=== PATIENT | female | born 1975 | race Caucasian/White ===

== ENCOUNTER → 2019-11-15 12:05 | Outpatient (BNVA) | payer MEDICARE, MEDICAID, SELFPAY | PROVIDERS: Visit Provider Psychiatry & Neurology Psychiatry | DX: F43.12 Post-traumatic stress disorder, chronic (principal); F33.41 Major depressive disorder, recurrent, in partial remission; F41.0 Panic disorder [episodic paroxysmal anxiety] | CPT/HCPCS: 99214 ==

== ENCOUNTER 2019-12-19 09:55 | Outpatient (CLI) | payer MEDICARE, MEDICAID, SELFPAY ==
--- NOTE | 2019-12-19 10:05 | MM_ITS ---
WS: [id number] DIAGNOSTIC LEFT DIGITAL MAMMOGRAM WITH CAD HISTORY: ABNORMAL MAMMO OF LT BREAST COMPARISON: 06/24/2019, 06/04/2019 at 05/16/2019 Technique: CC, MLO and ML views. Magnification views LEFT CC and MLO. Breast composition: The breasts are heterogeneously dense, which may obscure small masses. Biopsy cl ip 12:00 axis of the LEFT breast adjacent to multiple calcifications. After stereotactic biopsy major ity of the calcifications have been removed. There are still some calcifications on each side of the clip. Pathology described fibrocystic disease. No increase in size or number of the calcifications. MM/[id number] IMPRESSION: BI-RADS: 3-Probably Benign FOLLOW UP: 6 Month Follow-up Patient should return for annual screening mammogram in May 2020. These calc ifications and stability can be reevaluated at time.
== END 2019-12-19 09:56 | disposition home or self-care (01) ==
LOC: RADSHAW 09:57
PROVIDERS: PCP Nurse Practitioner Family; Visit Provider Nurse Practitioner Family
DX: R92.1 Mammographic calcification found on diagnostic imaging of breast (principal); R92.8 Other abnormal and inconclusive findings on diagnostic imaging of breast
CPT/HCPCS: 77065

== ENCOUNTER 2019-12-26 14:25 | Outpatient (CLI) | payer MEDICARE, MEDICAID, SELFPAY ==
[2019-12-26 15:10] LABS: Basophils # 0.1 10^3/uL (0.0-0.1); Basophils % 0.4 %; Eosinophils # 0.3 10^3/uL (0.0-0.8); Eosinophils % 2.6 %; Hematocrit 39.8 % (37.0-47.0); Hemoglobin 13.4 g/dL (11.5-15.3); Lymphocytes # 3.8 10^3/uL (0.8-4.8); Lymphocytes % 32.7 %; Mean Corpuscular HGB Conc 33.7 g/dL (30.0-36.0); Mean Corpuscular Hemoglobin 31.6 pg (28.0-34.0); Mean Corpuscular Volume 93.9 fL (81-99); Mean Platelet Volume 9.2 fL (7.4-10.4); Monocytes # 0.9 10^3/uL (0.2-0.9); Monocytes % 7.6 %; Neutrophils # 6.6 10^3/uL (1.8-7.7); Neutrophils % 56.4 %; Nucleated Red Blood Cells % 0 %; Platelet Count 229 10^3/cmm (130-400); Red Blood Count 4.24 10^6/uL (4.1-5.3); Red Cell Distribution Width 12.3 % (12.1-15.1); White Blood Count 11.6 10^3/uL (4.0-10.0)
[2019-12-26 15:40] LABS: Alanine Aminotransferase 18 U/L (0-33); Albumin Level 4.3 g/dL (3.5-5.2); Alkaline Phosphatase 99 IU/L (35-105); Anion Gap 15.8 (5-19); Aspartate Amino Transferase 24 U/L (0-32); Blood Urea Nitrogen 8 mg/dL (6-20); Calcium 9.2 mg/dL (8.5-10.5); Carbon Dioxide 28 mmol/L (22-29); Chloride 101 mmol/L (98-107); Chol HDL Ratio 2.83 mg/dL (0.0-4.40); Cholesterol 170 mg/dL (0-200); Globulin 3.4 g/dL (1.3-4.6); Glomerular Filtration Rate 91.8 mL/min (90-130); Glucose 110 mg/dL (65-115); HDL Cholesterol 60 mg/dL (60-100); Iron 49 ug/dL (37-145); LDL Cholesterol Calculated 95 mg/dL (50-129); LDL HDL Ratio 1.58 RATIO (0.00-3.22); Osmolality Calculated 289 mOsm/kg (285-295); Percent Saturation 19.6 % (20-50); Phosphorus 4.2 mg/dL (2.5-4.5); Potassium 3.8 mmol/L (3.5-5.1); Sodium 141 mmol/L (136-145); Thyroid Stimulating Hormone 2.42 uIU/mL (0.27-4.20); Total Bilirubin 0.3 mg/dL (0.15-1.2); Total Iron Binding Capacity 250 mcg/dl; Total Protein 7.7 g/dL (6.6-8.7); Triglycerides 74 mg/dL (0-150); Unsaturated Iron Binding 201 ug/dL (112-347); Vitamin B12 400 pg/mL (232-1245)
[2019-12-26 16:17] LABS: Calcium 9.7 mg/dL (8.5-10.5); Parathyroid Hormone 69.4 pg/mL (15-65)
[2019-12-26 17:50] LABS: Estmated Average Glucose 94; Hemoglobin A1C 4.9 % (4.0-6.0)
[2019-12-26 19:26] LABS: Folate Level > 20.0 ng/mL (4.8-37.3)
== END 2019-12-26 14:26 | disposition home or self-care (01) ==
LOC: LAB 14:30
PROVIDERS: PCP Nurse Practitioner Family; Visit Provider Surgery
DX: E66.9 Obesity, unspecified (principal)
CPT/HCPCS: 80053; 80061; 82310; 82607; 82746; 83036; 83540; 83550; 83735; 83970; 84100; 84443; 85025

== ENCOUNTER → 2020-02-07 08:22 | Outpatient (BNVA) | payer MEDICARE, MEDICAID, SELFPAY | PROVIDERS: PCP Nurse Practitioner Family; Visit Provider Psychiatry & Neurology Psychiatry | DX: F43.12 Post-traumatic stress disorder, chronic (principal); F33.2 Major depressive disorder, recurrent severe without psychotic features; F41.0 Panic disorder [episodic paroxysmal anxiety] | CPT/HCPCS: 99213 ==

== ENCOUNTER → 2020-06-18 08:40 | Outpatient (BNVA) | payer MEDICARE, MEDICAID, SELFPAY | PROVIDERS: PCP Nurse Practitioner Family; Visit Provider Psychiatry & Neurology Psychiatry | DX: F43.12 Post-traumatic stress disorder, chronic (principal); F33.2 Major depressive disorder, recurrent severe without psychotic features; F41.0 Panic disorder [episodic paroxysmal anxiety]; F41.1 Generalized anxiety disorder | CPT/HCPCS: 99213 ==

== ENCOUNTER 2020-07-08 14:44 | Outpatient (CLI) | payer MEDICARE, MEDICAID, SELFPAY ==
--- NOTE | 2020-07-08 14:51 | MM_ITS ---
WS: [id number] DIAGNOSTIC BILATERAL DIGITAL MAMMOGRAM WITH CAD HISTORY: 6 MO F/U CALCIFICATIONS STABILITY COMPARISON: 12/19/2019, 06/24/2019, 05/16/2019 and 05/07/2008 TECHNIQUE: Bilateral craniocaudad, mediolateral oblique, and mediolateral views are submitted. Magnif ication views LEFT MLO. Computer aided detection utilized. Breast composition: The breasts are heterogeneously dense, which may obscure small masses. Calcificat ions in the posterior LEFT breast are still evident. The number of calcifications has decreased due t o the biopsy. There is no increase in number of calcifications. No soft tissue mass. MM/[place] [id number] IMPRESSION: BI-RADS: 2-Benign FOLLOW UP: 1 Year Follow-up Calcifications are still present in the LEFT breast at the site of the biopsy. Number of calcifications has decreased since the biopsy. Continue with yearly e valuation.
== END 2020-07-08 14:45 | disposition home or self-care (01) ==
LOC: RADSHAW 14:48
PROVIDERS: PCP Family Medicine; Visit Provider Nurse Practitioner Family
DX: R92.1 Mammographic calcification found on diagnostic imaging of breast (principal)
CPT/HCPCS: 77066

== ENCOUNTER → 2020-08-13 07:53 | Outpatient (BNVA) | payer MEDICARE, MEDICAID, SELFPAY | PROVIDERS: PCP Nurse Practitioner Family; Visit Provider Psychiatry & Neurology Psychiatry | DX: F43.12 Post-traumatic stress disorder, chronic (principal); F33.2 Major depressive disorder, recurrent severe without psychotic features; F41.0 Panic disorder [episodic paroxysmal anxiety]; F41.1 Generalized anxiety disorder | CPT/HCPCS: 99213 ==

== ENCOUNTER → 2020-10-26 09:49 | Outpatient (BNVA) | payer MEDICARE, MEDICAID, SELFPAY | PROVIDERS: PCP Nurse Practitioner Family; Visit Provider Family Medicine | DX: E28.39 Other primary ovarian failure (principal); R10.32 Left lower quadrant pain; M54.9 Dorsalgia, unspecified; G89.29 Other chronic pain; F33.2 Major depressive disorder, recurrent severe without psychotic features; K02.9 Dental caries, unspecified; R42 Dizziness and giddiness; Z98.84 Bariatric surgery status | CPT/HCPCS: 80053; 85025 ==

== ENCOUNTER → 2020-11-16 09:16 | Outpatient (BNVA) | payer MEDICARE, MEDICAID, SELFPAY | PROVIDERS: PCP Family Medicine; Visit Provider Psychiatry & Neurology Psychiatry | DX: F43.12 Post-traumatic stress disorder, chronic (principal); F33.2 Major depressive disorder, recurrent severe without psychotic features; F41.0 Panic disorder [episodic paroxysmal anxiety] | CPT/HCPCS: 99214 ==

== ENCOUNTER → 2021-01-01 07:45 | Outpatient (BNVA) | payer MEDICARE, MEDICAID, SELFPAY | PROVIDERS: PCP Family Medicine; Visit Provider Psychiatry & Neurology Psychiatry | DX: F43.12 Post-traumatic stress disorder, chronic (principal); F33.2 Major depressive disorder, recurrent severe without psychotic features; F41.0 Panic disorder [episodic paroxysmal anxiety] | CPT/HCPCS: 99214 ==

== ENCOUNTER → 2021-05-06 07:11 | Outpatient (BNVA) | payer MEDICARE, MEDICAID, SELFPAY | PROVIDERS: PCP Family Medicine; Visit Provider Psychiatry & Neurology Psychiatry | DX: F41.0 Panic disorder [episodic paroxysmal anxiety] (principal); F33.2 Major depressive disorder, recurrent severe without psychotic features; F43.12 Post-traumatic stress disorder, chronic | CPT/HCPCS: 99213 ==

== ENCOUNTER 2021-09-04 13:56 | Emergency (ER) | payer MEDICARE, MEDICAID, SELFPAY ==
[2021-09-04 14:35] VITALS: BP 104/70; PULSE 75; RESP 16; TEMP 36.7; O2SAT 96; BMI 24.7
[2021-09-04 15:07] LABS: Basophils % 0.2 %; Hematocrit 37.6 % (37.0-47.0); Hemoglobin 13.2 g/dL (11.5-15.3); Lymphocytes # 2.1 10^3/uL (0.8-4.8); Lymphocytes % 38.1 %; Mean Corpuscular HGB Conc 35.1 g/dL (30.0-36.0); Mean Platelet Volume 9.3 fL (7.4-10.4); Monocytes # 0.4 10^3/uL (0.2-0.9); Monocytes % 7.3 %; Neutrophils # 2.98 10^3/uL (1.8-7.7); Neutrophils % 54.2 %; Nucleated Red Blood Cells % 0 %; Platelet Count 217 10^3/cmm (130-400); Red Blood Count 4.13 10^6/uL (4.1-5.3); Red Cell Distribution Width 12.1 % (12.1-15.1); White Blood Count 5.5 10^3/uL (4.0-10.0)
[2021-09-04 15:23] LABS: HCG, Serum Qual Negative (Negative)
[2021-09-04 15:28] LABS: Alanine Aminotransferase 10 U/L (0-33); Albumin Level 4.3 g/dL (3.5-5.2); Alkaline Phosphatase 91 IU/L (35-105); Anion Gap 17.8 (5-19); Aspartate Amino Transferase 18 U/L (0-32); Blood Urea Nitrogen 6 mg/dL (6-20); Calcium 8.4 mg/dL (8.5-10.5); Carbon Dioxide 22 mmol/L (22-29); Chloride 103 mmol/L (98-107); Globulin 2.2 g/dL (1.3-4.6); Glucose 92 mg/dL (65-115); Lipase 19 U/L (13-60); Osmolality Calculated 285 mOsm/kg (285-295); Potassium 3.8 mmol/L (3.5-5.1); Sodium 139 mmol/L (136-145); Total Bilirubin 0.3 mg/dL (0.15-1.2); Total Protein 6.5 g/dL (6.6-8.7)
[2021-09-04 16:10] VITALS: BP 105/67; PULSE 81; O2SAT 98
[2021-09-04 16:11] LABS: Add Urine Microscopic? NO; Charge for UA Resulting for Rev
[2021-09-04 16:15] LABS: Urine Appearance Clear (CLEAR); Urine Color Dark Yellow (Yellow); pH Urine 6 (5-7)
[2021-09-04 16:22] LABS: Bilirubin Urine 1+ (Negative); Blood Urine Neg (Negative); Glucose Urine UA Norm (Normal); Ketones Urine Negative (Negative); Leukocyte Esterase Urine Negative (Negative); Nitrate Urine Negative (Negative); Protein Urine Neg (Negative); Urobilinogen Urine 4 mg/dL (Negative)
[2021-09-04] MEDS: morphine 4 mg/mL SDV 1 mL IVP (16:24)
[2021-09-04] MEDS: ondansetron 2 mg/ML SDV 2 mL 4 MG IVP (16:24)
[2021-09-04 16:30] VITALS: BP 111/76; PULSE 67; O2SAT 95
--- NOTE | 2021-09-04 16:53 | CTR_ITS ---
PROCEDURE INFORMATION: Exam: CT Abdomen And Pelvis With Contrast Exam date and time: 09/04/2021 4:53 PM Age: 46 years old Clinical indication: Abdominal pain; Localized; Right lower quadrant (rlq); Prior surgery; Surgery date: 6+ months; Surgery type: Gastric sleeve; Patient HX: C/O rlq abd pain w nvd x 1 week TECHNIQUE: Imaging protocol: Computed tomography of the abdomen and pelvis with contrast. Radiation optimization: All CT scans at this facility use at least one of these dose optimization techniques: automated exposure control; mA and/or kV adjustment per patient size (includes targeted exams where dose is matched to clinical indication); or iterative reconstruction. Contrast material: OMNI 300; Contrast volume: 95 ml; Contrast route: INTRAVENOUS (IV); COMPARISON: CT abdomen w con* [id number] 01/29/2019 10:45 AM RADIATION DOSE METRICS: Total DLP (mGy-cm): 1028.31 FINDINGS: Liver: Normal. No mass. Gallbladder and bile ducts: The gallbladder has been removed. Prominence of the intrahepatic and extrahepatic biliary ducts. This can be seen after cholecystectomy. No radiopaque retained stones are seen. Pancreas: Normal. No ductal dilation. Spleen: Normal. No splenomegaly. Adrenal glands: Normal. No mass. Kidneys and ureters: Normal. No hydronephrosis. Stomach and bowel: Postop gastric sleeve changes. Colonic constipation is present. Appendix: I believe portions of the appendix are visualized on axial series 2 images 56 through 58. Portions visualized appear normal. There are no pericecal or periappendiceal inflammatory changes. Intraperitoneal space: Unremarkable. No free air. No significant fluid collection. Vasculature: Unremarkable. No abdominal aortic aneurysm. Lymph nodes: Unremarkable. No enlarged lymph nodes. Urinary bladder: Unremarkable as visualized. Reproductive: Unremarkable as visualized. Bones/joints: Unremarkable. No acute fracture. Soft tissues: Unremarkable. CT/CT abdomen pelvis w con* [id number] IMPRESSION: Colonic constipation is present. Radiation Dose CTDIVOL = (mGy): DLP = 1028.31 (mGy-cm)
--- NOTE | 2021-09-04 17:16 | ED_ITS ---
HPI - Abdominal Pain General: Chief Complaint: Abdominal Pain Stated Complaint: R SIDE ABD & BACK PAIN Time Seen by Provider: 09/04/21 15:57 History of Present Illness: HPI narrative: 46-year-old female presents emergency room with right-sided abdominal pain radiating into her right flank. She does have history of 1 week she has nausea vomiting and diarrhea she not had any respiratory symptoms. She denies any medication on hematemesis coffee- ground emesis. She denies any dysuria urgency or frequency. She is not had any history of renal stones. She has previously had bladder sling hysterectomy and laparoscopy for endometriosis. She denies any precipitating or relieving spoke to the pain. MD elicited complaint: abdominal pain Onset (ago): week(s) (1) Pain Consistency: constant Location: RUQ and RLQ Severity: mild Quality: stabbing Radiation: R flank Exacerbating factors: nothing Relieving factors: nothing Associated Symptoms: Reports anorexia, bloating, change in stool character, GI cramping, diarrhea, nausea, poor appetite and vomiting; Denies belching, change in bowel habits, chills, coffee ground emesis, con stipation, dyspepsia, dysuria, excessive flatus, fever(s), heartburn, hematochezia, hematuria, hematemesis, fecal incontinence, loose stools, melena and syncope Review of Systems Const: Denies: fever(s) or chills Card: Denies: syncope GI: Reports: nausea, vomiting, diarrhea, bloating, GI cramping and change in stool character; Denies: hematemesis, coffee ground emesis, heartburn, constipation, belching, excessive flatus, fecal incontinence, change in bowel habits, hematochezia or melena : Denies: dysuria or hematuria PFS ED PFSH: Medical History Abnormal mammogram Chronic back pain greater than 3 months duration Dental caries Hypertension Hypoestrogenism Left lower quadrant pain Seizure-like activity Surgical History History of esophagogastroduodenoscopy (EGD) History of sleeve gastrectomy Family History Denies family history of Anesthesia complication Bleeding disorder Social History Smoking and tobacco status: former smoker Quit status (tobacco): has quit using tobacco Year quit tobacco: 03/2018 Former quit date comment: 2 PPD for 14 years Second hand smoke exposure: Yes Physical Exam Const: COMMON NORMALS: no acute distress GENERAL APPEARANCE: cooperative and comfortable ORIENTATION/CONSCIOUSNESS: Yes awake, Yes oriented to person, Yes oriented to place and Yes oriented to time HENMT: COMMON NORMALS: normocephalic, atraumatic and hearing grossly normal b ilaterally HEAD & SCALP: normocephalic and atraumatic Neck/C-Spine: COMMON NORMALS: no JVD Resp: COMMON NORMALS: normal respiratory effort, No retractions, No use of accessory muscles and clear to auscultation bilaterally AUSCULTATION: clear to auscultation bilaterally Cardio: COMMON NORMALS: no JVD, regular rate, regular rhythm and No murmurs present (Cardio) RATE: regular rate RHYTHM: regular rhythm GI: COMMON NORMALS: Soft to palpation and No hepatosplenomegaly present AUSCULTATION: Yes normoactive bowel sounds PALPATION: Yes Soft to palpation, No Tenderness to palpation present (GI), No Guarding due to palpation present (GI) and Yes No hepatosplenomegaly present Extremity: COMMON NORMALS: normal to inspection, capillary refill normal, no clubbing, cyanosis or edema, no calf tenderness and no pedal edema Neuro: SENSORIUM/ORIENTATION: Yes oriented to person, Yes oriented to place and Yes oriented to time Skin: COMMON NORMALS: no rashes or lesions noted GENERAL SKIN EXAM: no rashes or lesions noted Course Vital Signs: Vital signs: Vital Signs Temperature 98.1 F 09/04/21 14:35 Pulse Rate 68 09/04/21 18:46 Respiratory Rate 16 09/04/21 14:35 Blood Pressure 119/65 09/04/21 18:46 Pulse Oximetry 99 09/04/21 18:46 MDM - Abdominal Pain MDM Narrative: Medical decision making narrative: Labs and imaging reviewed with the patient. Is moderate constipation patient is otherwise feeling fine now no further problems she is not having any further abdominal pain discharge home [id number] magnesium citrate for milk of magnesia. Lab Data: Labs: Lab Results 09/04/21 09/04/2121 14:32 14:39 14:39 WBC 5.5 10^3/uL 10^3/ uL (4.0-10.0) RBC 4.13 10^6/uL 10^6 /uL (4.1-5.3) Hgb 13.2 g/dL g/dL (11.5-15.3) Hct 37.6 % % (37.0-47.0) MCV 91.0 fl fl (81-99) MCH 32.0 pg pg (28.0-34.0) MCHC 35.1 g/dL g/dL (30.0-36.0) RDW 12.1 % % (12.1-15.1) Plt Count 217 10^3/cmm 10^3 /cmm (130-400) MPV 9.3 fL fL (7.4-10.4) Neut % (Auto) 54.2 % % Lymph % (Auto) 38.1 % % Reeves % (Auto) 7.3 % % Eos % (Auto) 0.0 % % Baso % (Auto) 0.2 % % Neut # (Auto) 2.98 10^3/uL 10^3 /uL (1.8-7.7) Lymph # (Auto) 2.1 10^3/uL 10^3/ uL (0.8-4.8) Reeves # (Auto) 0.4 10^3/uL 10^3/ uL (0.2-0.9) Eos # (Auto) 0.0 10^3/uL 10^3/ uL (0.0-0.8) Baso # (Auto) 0.0 10^3/uL 10^3/ uL (0.0-0.1) Nucleated RBC % (a uto) 0 % % Nucleated RBCs # 0.0 /100WBC /100W BC Sodium 139 mmol/L mmol/L (136-145) Potassium 3.8 mmol/L mmol/L (3.5-5.1) Chloride 103 mmol/L mmol/L (98-107) Carbon Dioxide 22 mmol/L mmol/L (22-29) Anion Gap 17.8 (5-19) BUN 6 mg/dL mg/dL (6-20) Creatinine 0.5 mg/dL mg/dL (0.5-0.9) GFR Calculation 134.0 mL/min H mL /min (90-130) Glucose 92 mg/dL mg/dL (65-115) Calculated Osmolal ity 285 mOsm/kg mOsm/ kg (285-295) Calcium 8.4 mg/dL L mg/dL (8.5-10.5) Total Bilirubin 0.3 mg/dL mg/dL (0.15-1.2) AST 18 U/L U/L (0-32) ALT 10 U/L U/L (0-33) Alkaline Phosphata se 91 IU/L IU/L (35-105) Total Protein 6.5 g/dL L g/dL (6.6-8.7) Albumin 4.3 g/dL g/dL (3.5-5.2) Globulin 2.2 g/dL g/dL (1.3-4.6) Lipase 19 U/L U/L (13-60) HCG, Qual Urine Color Dark yellow (Yellow) Urine Appearance Clear (CLEAR) Urine pH 6 (5-7) Ur Specific Gravit y 1.020 (1.005-1.030) Urine Protein Neg (Negative) Urine Glucose (UA) Norm (Normal) Urine Ketones Negative (Negative) Urine Blood Neg (Negative) Urine Nitrate Negative (Negative) Urine Bilirubin 1+ H (Negative) Urine Urobilinogen 4 mg/dL H mg/dL (Negative) Ur Leukocyte Nicki ase Negative (Negative) 09/04/21 14:39 WBC RBC Hgb Hct MCV MCH MCHC RDW Plt Count MPV Neut % (Auto) Lymph % (Auto) Reeves % (Auto) Eos % (Auto) Baso % (Auto) Neut # (Auto) Lymph # (Auto) Reeves # (Auto) Eos # (Auto) Baso # (Auto) Nucleated RBC % (a uto) Nucleated RBCs # Sodium Potassium Chloride Carbon Dioxide Anion Gap BUN Creatinine GFR Calculation Glucose Calculated Osmolal ity Calcium Total Bilirubin AST ALT Alkaline Phosphata se Total Protein Albumin Globulin Lipase HCG, Qual Negative (Negative) Urine Color Urine Appearance Urine pH Ur Specific Gravit y Urine Protein Urine Glucose (UA) Urine Ketones Urine Blood Urine Nitrate Urine Bilirubin Urine Urobilinogen Ur Leukocyte Nicki ase Discharge Plan Discharge Patient Disposition: Home Clinical Impression: Constipation Condition: Stable Prescriptions: New Zofran 4 mg tablet 4 mg PO Q6H PRN (Reason: nausea and vomiting) Qty: 20 RF: 0 No Action desvenlafaxine succinate [Pristiq] 100 mg tablet extended release 24 hr 100 mg PO DAILY Qty: 30 RF: 2 trazodone 50 mg tablet 100 mg PO DAILY Qty: 60 RF: 2 lamotrigine [Lamictal] 100 mg tablet 200 mg PO DAILY Qty: 60 RF: 2 estradiol 0.5 mg tablet 0.5 mg PO DAILY 90 Days Qty: 90 RF: 2 carisoprodol 350 mg tablet 350 mg PO .bed time PRN (Reason: muscle pain) Qty: 30 RF: 5 Discharge Orders: Discharge ED (Routine); Ordered 09/04/21 Ordered By: Jered Redmond Referrals: Jennifer Garcia FNP [Primary Care Provider] - Discharge Diet: Clear Liquid Patient Instructions: Opioid Safety Activity Restrictions/Additional Instructions: Use [id number] mag citrate to relieve constipation. He can use Zofran as needed for nausea and vomiting clear liquid diet for 48 hours and follow-up as needed Coding Level of Care Code ED Platform Material Handler Manager for Aleksandr Fwd Exam Comprehensive
[2021-09-04] MEDS: iohexol 300 mg/mL 100 mL Btl IV (17:23)
[2021-09-04 18:46] VITALS: BP 119/65; PULSE 68; O2SAT 99
== END 2021-09-04 18:49 | disposition home or self-care (01) ==
PROVIDERS: Physician Assistant; Emergency Provider Family Medicine; PCP Nurse Practitioner Family
DX: K59.00 Constipation, unspecified (principal); I10 Essential (primary) hypertension; Z87.891 Personal history of nicotine dependence
CPT/HCPCS: 74177; 80053; 81003; 83690; 84703; 85025; 96374; 96375; 99283; J2270; J2405; Q9967

== ENCOUNTER → 2021-11-02 13:06 | Outpatient (BNVA) | payer MEDICARE, MEDICAID, SELFPAY | PROVIDERS: PCP Nurse Practitioner Family; Visit Provider Psychiatry & Neurology Psychiatry | DX: F33.2 Major depressive disorder, recurrent severe without psychotic features (principal); F43.12 Post-traumatic stress disorder, chronic; F41.0 Panic disorder [episodic paroxysmal anxiety] | CPT/HCPCS: 99213 ==

== ENCOUNTER 2021-12-31 00:25 | Emergency (ER) | payer MEDICARE, MEDICAID, SELFPAY ==
[2021-12-31 00:33] VITALS: BP 141/63; PULSE 70; RESP 18; TEMP 37; O2SAT 97; BMI 24.2
--- NOTE | 2021-12-31 00:52 | USR_ITS ---
PROCEDURE INFORMATION: Exam: US Unlisted Ultrasound Procedure Exam date and time: 12/31/2021 1:01 AM Age: 46 years old Clinical indication: Symptoms: Palpable knot in lower right arm. Discoloration in area of interest; Additional info: Knot on right lower arm TECHNIQUE: Imaging protocol: Unlisted ultrasound procedure (eg, diagnostic, interventional). COMPARISON: No relevant prior studies available. FINDINGS: Procedural imaging: No mass lesion or fluid collection. US/US soft tissue/extremity [id number] IMPRESSION: Negative examination.
--- NOTE | 2021-12-31 01:05 | ED_ITS ---
HPI - Extremity Problem General: Chief complaint: Extremity Injury, Lower Stated complaint: Knot on Arm Just appeared Time Seen by Provider: 12/31/21 00:26 Source: patient Mode of arrival: ambulatory Limitations: no limitations History of Present Illness: 46-year-old female states that she started noticing some pain to her right forearm and looked and states that she had an area to her right forearm that was blue look like a large bruise but states it is very painful she is worried that she could have a blood clot denies any known injuries denies any worsening improving factors. Associated symptoms: Deny chest pain, fever(s) or rash Review of Systems Const: Denies: fever(s), chills, body aches or change in appetite Eyes: Denies: blurry vision or eye discomfort ENMT: Denies: throat pain or dental pain Card: Denies: chest pain Resp: Denies: dyspnea GI: Denies: abdominal pain, nausea, vomiting or diarrhea : Denies: dysuria Musc: Denies: neck pain or back pain Skin/Breast: Denies: rash Neuro: Denies: headache(s) Psych: Denies: depression Vaibhav/Lymph: Denies: easy bruising All/Imm: Denies: urticaria PFSH ED PFSH: Medical History Abnormal mammogram Chronic back pain greater than 3 months duration Dental caries Hypertension Hypoestrogenism Left lower quadrant pain Seizure-like activity Surgical History History of esophagogastroduodenoscopy (EGD) History of sleeve gastrectomy Family History Denies family history of Anesthesia complication Bleeding disorder Social History Smoking and tobacco status: former smoker Quit status (tobacco): has quit using tobacco Year quit tobacco: 03/2018 Former quit date comment: 2 PPD for 14 years Second hand smoke exposure: Yes Physical Exam Const: COMMON NORMALS: no acute distress, patient oriented x3 and healthy appearing HENMT: COMMON NORMALS: normocephalic and atraumatic HEAD & SCALP: normocephalic and atraumatic Eye: COMMON NORMALS: Equal, round and reactive pupils present and EOMs intact bilaterally PUPIL: Yes Equal, round and reactive pupils present Neck/C-Spine: COMMON NORMALS: full ROM and supple Chest: COMMONS NORMALS: normal inspection of the chest and normal palpation of entire chest wall Resp: COMMON NORMALS: normal respiratory effort, No retractions, No use of accessory muscles and clear to auscultation bilaterally AUSCULTATION: clear to auscultation bilaterally Cardio: COMMON NORMALS: regular rate, regular rhythm and No murmurs present (Cardio) RATE: regular rate RHYTHM: regular rhythm GI: COMMON NORMALS: Normal to inspection, nondistended, normoactive bowel s ounds present, Soft to palpation, non-tender and no masses PALPATION: Yes Soft to palpation Extremity: COMMON NORMALS: full ROM NARRATIVE EXTREMITY EXAM: Roughly quarter size area to right forearm looks like a contusion does have some tenderness to touch Neuro: COMMON NORMALS: patient oriented x3, moves all extremities and no focal motor deficits Psych: COMMON NORMALS: mental status grossly normal, Normal thought process present and cooperative THOUGHT PROCESS: Normal thought process present Skin: COMMON NORMALS: no rashes or lesions noted and no wounds GENERAL SKIN EXAM: no rashes or lesions noted Course Vital Signs: Vital signs: Vital Signs Temperature 98.6 F 12/31/21 00:33 Pulse Rate 70 12/31/21 00:33 Respiratory Rate 18 12/31/21 00:33 Blood Pressure 141/63 12/31/21 00:33 Pulse Oximetry 97 12/31/21 00:33 MDM - Extremity (Nontraumatic) Medical Decision Making Patient presents here with a contusion to her right forearm ultrasound showed no signs of blood clot she has good distal pulses patient is stable for discharge she is to compress the area use ice and heat Discharge Plan Discharge Patient Disposition: Home Clinical Impression: Contusion Condition: Stable Prescriptions: No Action hydrocodone-acetaminophen 5-300 mg tablet 1 tab PO BID PRN0RF desvenlafaxine succinate [Pristiq] 100 mg tablet extended release 24 hr 100 mg PO DAILY Qty: 30 2RF trazodone 50 mg tablet 100 mg PO DAILY Qty: 60 2RF lamotrigine [Lamictal] 100 mg tablet 200 mg PO DAILY Qty: 60 2RF estradiol 0.5 mg tablet 0.5 mg PO DAILY 90 Days Qty: 90 2RF Zofran 4 mg tablet 4 mg PO Q6H PRN (Reason: nausea and vomiting) Qty: 20 0RF Discharge Orders: Discharge ED (Routine); Ordered 12/31/21 Ordered By: Juaquin Trejo Referrals: Jennifer Garcia FNP [Primary Care Provider] - 1-3 days Discharge Diet: Advance as tolerated Discharge Activity: Resume usual activity Patient Instructions: Contusion in Adults (ED) Coding Level of Care Code ED Pack Puller for Prog Fwd Exam Comprehensive
[2021-12-31] MEDS: HYDROcodone-acetaminophen 5-325 mg Tablet 1 TAB PO (01:39)
== END 2021-12-31 01:55 | disposition home or self-care (01) ==
PROVIDERS: Emergency Provider Emergency Medicine; PCP Nurse Practitioner Family
DX: S50.11XA Contusion of right forearm, initial encounter (principal); I10 Essential (primary) hypertension; Z87.891 Personal history of nicotine dependence; X58.XXXA Exposure to other specified factors, initial encounter
CPT/HCPCS: 76882; 99283

== ENCOUNTER → 2022-01-27 10:20 | Outpatient (BNVA) | payer MEDICARE, MEDICAID, SELFPAY | PROVIDERS: PCP Nurse Practitioner Family; Visit Provider Psychiatry & Neurology Psychiatry | DX: F33.2 Major depressive disorder, recurrent severe without psychotic features (principal); F41.0 Panic disorder [episodic paroxysmal anxiety]; F43.12 Post-traumatic stress disorder, chronic | CPT/HCPCS: 99214 ==

== ENCOUNTER 2022-05-16 09:43 | Emergency (ER) | payer MEDICARE, MEDICAID, SELFPAY ==
[2022-05-16] VITALS (12 sets, daily range): BP systolic 90–112; BP diastolic 46–68; PULSE 74–90; RESP 15–20; TEMP 36.6; O2SAT 95–100; BMI 22.8
--- NOTE | 2022-05-16 11:10 | ECG_ITS ---
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 Measurements Intervals [place] Rate: 73 P: 77 MS: 147 QRS: 79 QRSD: 90 T: 65 QT: 392 QTc: 432 Interpretive Statements SINUS RHYTHM POSSIBLE LEFT ATRIAL ENLARGEMENT [-0.1mV P-WAVE IN V1/V2] NONSPECIFIC T-WAVE ABNORMALITY Compared to ECG 01/01/2019 20:18:16 Sinus tachycardia no longer present T-wave abnormality still present Electronically Signed On 05-17-2022 0:46:56 CDT by Peter Brown M.D. [email or web address]
[2022-05-16 11:45] LABS: Add Urine Microscopic? NO; Basophils % 0.3 %; Charge for UA Resulting for Rev; Eosinophils % 0.3 %; Hematocrit 36.5 % (37.0-47.0); Hemoglobin 12.3 g/dL (11.5-15.3); Lymphocytes # 1.7 10^3/uL (0.8-4.8); Lymphocytes % 42.6 %; Mean Corpuscular HGB Conc 33.7 g/dL (30.0-36.0); Mean Corpuscular Hemoglobin 31.5 pg (28.0-34.0); Mean Corpuscular Volume 93.4 fl (81-99); Mean Platelet Volume 9.4 fL (7.4-10.4); Monocytes # 0.5 10^3/uL (0.2-0.9); Monocytes % 11.5 %; Neutrophils # 1.76 10^3/uL (1.8-7.7); Nucleated Red Blood Cells % 0 %; Platelet Count 190 10^3/cmm (130-400); Red Blood Count 3.91 10^6/uL (4.1-5.3); Red Cell Distribution Width 12.5 % (12.1-15.1); White Blood Count 3.9 10^3/uL (4.0-10.0)
[2022-05-16 11:52] LABS: Bilirubin Urine Neg (Negative); Blood Urine Neg (Negative); Glucose Urine UA Norm (Normal); Ketones Urine Negative (Negative); Nitrate Urine Negative (Negative); Protein Urine Neg (Negative); Specific Gravity, Urine 1.015 (1.005-1.030); Urine Appearance Clear (CLEAR); Urine Color Dark Yellow (Yellow); Urobilinogen Urine 4 mg/dL (Negative); pH Urine 6.5 (5-7)
[2022-05-16 11:53] LABS: Leukocyte Esterase Urine Negative (Negative)
[2022-05-16 12:11] LABS: Alanine Aminotransferase 8 U/L (0-33); Albumin Level 4.2 g/dL (3.5-5.2); Alkaline Phosphatase 105 IU/L (35-105); Anion Gap 11.9 (5-19); Aspartate Amino Transferase 16 U/L (0-32); Blood Urea Nitrogen 5 mg/dL (6-20); Calcium 8.7 mg/dL (8.5-10.5); Carbon Dioxide 28 mmol/L (22-29); Chloride 105 mmol/L (98-107); Globulin 2.3 g/dL (1.3-4.6); Glomerular Filtration Rate 133.4 mL/min (90-130); Glucose 95 mg/dL (65-115); Lipase 17 U/L (13-60); Osmolality Calculated 289 mOsm/kg (285-295); Potassium 3.9 mmol/L (3.5-5.1); Sodium 141 mmol/L (136-145); Total Bilirubin 0.4 mg/dL (0.15-1.2); Total Protein 6.5 g/dL (6.6-8.7)
[2022-05-16 12:12] LABS: HCG, Serum Qual Negative (Negative)
--- NOTE | 2022-05-16 12:14 | CT_ITS ---
WS: [id number] CT ABDOMEN AND PELVIS WITH CONTRAST HISTORY: RUQ pain, vomiting TECHNIQUE: Imaging performed of the abdomen and pelvis with IV contrast. Single phase imaging of the abdomen. Coronal and sagittal reformats are submitted. All CT scans at [facility] use at [address] one of these dose optimization techniques: automated exposure control; mA and/or kV adjustment per patient size (includes targeted exams where dose is matched to clinical indication); or iterative re construction. IV CONTRAST: Omnipaque 350; 80 mL IV. Oral contrast: No DLP: 367.79 mGy.cm COMPARISON: 09/04/2021 Lower thorax: Benign granuloma LEFT lung base. Motion artifact. Heart is normal size. No hiatal herni a. Liver/biliary system: Normal size liver. Central bile ducts aren't dilated. Common bile duct is also prominent measuring 12 mm in diameter. Duct tapers normally towards the ampulla. Similar appearance t o the prior examination from 09/04/2021. Gallbladder: Status post cholecystectomy. Pancreas: Normal size pancreas and pancreatic duct. No adjacent inflammation. Spleen: Normal size spleen. No mass or infarct. 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 Adrenal glands: Normal. Right kidney: Normal. Left kidney: Normal. Aorta: Mild atherosclerosis with no aneurysm. Lymphadenopathy: None. Free fluid: None. GI tract: Prior bariatric surgery with gastric sleeve. No GI tract obstruction. There is a small amou nt of increased fluid within the small bowel loops but no obstruction. Mild diffuse constipation. The appendix is is not definitely identified. Abdominal wall: Unremarkable abdominal wall. No hernia. Pelvis: Prior hysterectomy. No free fluid. Bones: Unremarkable. CT/CT abdomen pelvis w con* [id number] IMPRESSION: 1. No acute abdominal or pelvic abnormalities are identified. 2. Prior cholecystectomy. Patient has known bile duct dilatation which may be physiologic and related to the cholecystectomy. Similar appearance to the prior study from 09/04/2021. Bile duct dilatation has increased since 01/29/2019. 3. Prior gastric sleeve. 4. There is a small amount of increased fluid within the small bowel loops whi ch may be due to gastroenteritis. No obstruction is identified. The appendix is not identified but there are no secondary findings of acute appendicitis.
--- NOTE | 2022-05-16 12:15 | W.ED.ABDPA2 ---
HPI - Abdominal Pain General: Chief Complaint: Abdominal Pain Stated Complaint: abd pain Time Seen by Provider: 05/16/22 11:55 Source: patient Mode of arrival: ambulatory Limitations: no limitations History of Present Illness: Patient is a 47-year-old female here for complaints of right upper abdominal pain over the past 1 to 2 days. Patient describes the pain as intermittent episodes of severe sharp pain to her right upper quadrant. Patient states she has a history of a gastric sleeve performed in 2017. She is also status post cholecystectomy. Patient tells me she has chronic nausea and vomiting but nobody has ever seemed to give her the etiology for her. She is not actively vomiting now. Bowel movements have been normal. Patient has no previous history of bowel obstructions. She has not been running fevers. Patient states pain doesn't seem to be affected by eating. MD elicited complaint: abdominal pain Pertinent past history: other (gastric sleeve, cholecystectomy, hysterectomy) Onset (ago): day(s) Pain Consistency: intermittent Location: RUQ Severity: severe Quality: stabbing and sharp Radiation: none Migration to: no migration Exacerbating factors: nothing Relieving factors: nothing Associated Symptoms: Reports nausea; Denies change in bowel habits, chills, diarrhea, dysuria, fever(s), hematochezia, hematemesis, melena and vomiting Related Data: Patient : No Review of Systems Const: Denies: fever(s), chills, body aches, fatigue or malaise Card: Denies: chest pain, palpitations or lightheadedness Resp: Denies: dyspnea GI: Reports: abdominal pain and nausea; Denies: vomiting, hematemesis, diarrhea, change in bowel habits, hematochezia or melena : Denies: flank pain, difficulty voiding, dysuria, urinary frequency, urinary urgency, urinary hesitancy or pelvic pain Musc: Denies: neck pain, back pain, extremity pain or joint pain Skin/Breast: Denies: rash Neuro: Denies: headache(s), numbness in extremities, weakness in extremities or sensory changes PFSH ED PFSH: Medical History Abnormal mammogram Chronic back pain greater than 3 months duration Dental caries Hypertension Hypoestrogenism Left lower quadrant pain Seizure-like activity Surgical History History of esophagogastroduodenoscopy (EGD) History of sleeve gastrectomy Family History Denies family history of Anesthesia complication Bleeding disorder Social History Smoking and tobacco status: former smoker Quit status (tobacco): has quit using tobacco Year quit tobacco: 03/2018 Former quit date comment: 2 PPD for 14 years Second hand smoke exposure: Yes Physical Exam Const: COMMON NORMALS: patient oriented x3, no limitations, alert and well nourished GENERAL APPEARANCE: cooperative and in distress (NAD at times; other times with onset of pain appears uncomfortable) ORIENTATION/CONSCIOUSNESS: Yes awake, Yes oriented to person, Yes oriented to place and Yes oriented to time HENMT: COMMON NORMALS: normocephalic and atraumatic HEAD & SCALP: normal to inspection, normocephalic and atraumatic Resp: COMMON NORMALS: normal respiratory effort and clear to auscultation bilaterally AUSCULTATION: clear to auscultation bilaterally Cardio: COMMON NORMALS: regular rate and regular rhythm RATE: regular rate RHYTHM: regular rhythm GI: COMMON NORMALS: Normal to inspection, nondistended, normoactive bowel sounds present, Soft to palpation, non-tender, No hepatosplenomegaly present and no masses INSPECTION: Yes normal to inspection AUSCULTATION: Yes normoactive bowel sounds PALPATION: Yes Soft to palpation, Yes Tenderness to palpation present (GI) (RUQ), No Guarding due to palpation present (GI), No Rigid due to palpation and Yes No hepatosplenomegaly present : COMMON NORMALS: Yes no CVA tenderness BLADDER/KIDNEY EXAM: Yes no CVA tenderness Back/Pelvis: COMMON NORMALS: no CVA tenderness Extremity: COMMON NORMALS: normal to inspection GENERAL: Yes normal exam except as noted Neuro: LORRIE COMA SCALE: document GCS findings Lorrie coma scale eye opening: Spontaneous Lorrie coma scale verbal response: Orientated [place] coma scale motor response: Obey commands [place] coma scale total score: 15 COMMON NORMALS: patient oriented x3, moves all extremities, no focal motor deficits and no sensory deficits noted SENSORIUM/ORIENTATION: Yes alert, Yes oriented to person, Yes oriented to place and Yes oriented to time Skin: COMMON NORMALS: no rashes or lesions noted GENERAL SKIN EXAM: no rashes or lesions noted Course Vital Signs: Vital signs: Vital Signs Temperature 97.8 F 05/16/22 10:01 Pulse Rate 77 05/16/22 11:37 Respiratory Rate 18 05/16/22 14:00 Blood Pressure 112/66 05/16/22 14:00 Pulse Oximetry 97 05/16/22 14:00 Oxygen Delivery Me thod 05/16/22 11:37 MDM - Abdominal Pain Medical Decision Making Patient's vital signs are stable. Blood work today overall is unremarkable. Her CT scan showing no acute abdominal or pelvic abnormalities. She does have chronic bile duct dilatation most likely physiologic from her previous cholecystectomy and was stable in appearance compared to a study in 08/2021. Did comment on a small amount of increased fluid within small bowel loops which could represent gastroenteritis although clinically I would not favor this. I will set her up to see general surgery for further evaluation. She is requesting Dr. Avila that she has seen him previously. Recommend she can continue her methadone that she takes daily for pain. We will prescribe her an antiemetic. We will also trial her with PPI/H2 to see if this helps her discomfort at all. Return to ED precautions given. Lab Data : 05/16/22 11:29 05/16/22 11:29 Labs/Radiology: Radiology Impressions Abdomen/Pelvis CT 05/16/22 12:14 IMPRESSION: 1. No acute abdominal or pelvic abnormalities are identified. 2. Prior cholecystectomy. Patient has known bile duct dilatation which may be physiologic and related to the cholecystectomy. Similar appearance to the prior study from 09/04/2021. Bile duct dilatation has increased since 01/29/2019. 3. Prior gastric sleeve. 4. There is a small amount of increased fluid within the small bowel loops which may be due to gastroenteritis. No obstruction is identified. The appendix is not identified but there are no secondary findings of acute appendicitis. Laboratory Results WBC 3.9 10^3/uL (4.0-10.0) L 05/16/22 11:29 RBC 3.91 10^6/uL (4.1-5.3) L 05/16/22 11:29 Hgb 12.3 g/dL (11.5-15.3) 05/16/22 11:29 Hct 36.5 % (37.0-47.0) L 05/16/22 11:29 MCV 93.4 fl (81-99) 05/16/22 11:29 MCH 31.5 pg (28.0-34.0) 05/16/22 11:29 MCHC 33.7 g/dL (30.0-36.0) 05/16/22 11:29 RDW 12.5 % (12.1-15.1) 05/16/22 11:29 Plt Count 190 10^3/cmm (130-400) 05/16/22 11:29 MPV 9.4 fL (7.4-10.4) 05/16/22 11:29 Neut % (Auto) 45.0 % 05/16/22 11:29 Lymph % (Auto) 42.6 % 05/16/22 11:29 [place] % (Auto) 11.5 % 05/16/22 11:29 Eos % (Auto) 0.3 % 05/16/22 11:29 Baso % (Auto) 0.3 % 05/16/22 11:29 Neut # (Auto) 1.76 10^3/uL (1.8-7.7) L 05/16/22 11:29 Lymph # (Auto) 1.7 10^3/uL (0.8-4.8) 05/16/22 11:29 [place] # (Auto) 0.5 10^3/uL (0.2-0.9) 05/16/22 11:29 Eos # (Auto) 0.0 10^3/uL (0.0-0.8) 05/16/22 11:29 Baso # (Auto) 0.0 10^3/uL (0.0-0.1) 05/16/22 11:29 Nucleated RBC % (auto) 0 % 05/16/22 11:29 Nucleated RBCs # 0.0 /100WBC 05/16/22 11:29 Sodium 141 mmol/L (136-145) 05/16/22 11:29 Potassium 3.9 mmol/L (3.5-5.1) 05/16/22 11:29 Chloride 105 mmol/L (98-107) 05/16/22 11:29 Carbon Dioxide 28 mmol/L (22-29) 05/16/22 11:29 Anion Gap 11.9 (5-19) 05/16/22 11:29 BUN 5 mg/dL (6-20) L 05/16/22 11:29 Creatinine 0.5 mg/dL (0.5-0.9) 05/16/22 11:29 GFR Calculation 133.4 mL/min (90-130) H 05/16/22 11:29 Glucose 95 mg/dL (65-115) 05/16/22 11:29 Calculated Osmolality 289 mOsm/kg (285-295) 05/16/22 11:29 Calcium 8.7 mg/dL (8.5-10.5) 05/16/22 11:29 Total Bilirubin 0.4 mg/dL (0.15-1.2) 05/16/22 11:29 AST 16 U/L (0-32) 05/16/22 11:29 ALT 8 U/L (0-33) 05/16/22 11:29 Alkaline Phosphatase 105 IU/L (35-105) 05/16/22 11:29 Total Protein 6.5 g/dL (6.6-8.7) L 05/16/22 11:29 Albumin 4.2 g/dL (3.5-5.2) 05/16/22 11:29 Globulin 2.3 g/dL (1.3-4.6) 05/16/22 11:29 Lipase 17 U/L (13-60) 05/16/22 11:29 HCG, Qual Negative (Negative) 05/16/22 11:29 Urine Color Dark yellow (Yellow) 05/16/22 11:29 Urine Appearance Clear (CLEAR) 05/16/22 11:29 Urine pH 6.5 (5-7) 05/16/22 11:29 Ur Specific [place] 1.015 (1.005-1.030) 05/16/22 11:29 Urine Protein Neg (Negative) 05/16/22 11:29 Urine Glucose (UA) Norm (Normal) 05/16/22 11:29 Urine Ketones Negative (Negative) 05/16/22 11:29 Urine Blood Neg (Negative) 05/16/22 11:29 Urine Nitrate Negative (Negative) 05/16/22 11:29 Urine Bilirubin Neg (Negative) 05/16/22 11:29 Urine Urobilinogen 4 mg/dL (Negative) H 05/16/22 11:29 Ur Leukocyte Esterase Negative (Negative) 05/16/22 11:29 Discharge Plan Discharge Patient Disposition: Home Clinical Impression: Upper abdominal pain of unknown etiology Condition: Stable Prescriptions: New ondansetron 4 mg tablet,disintegrating 4 mg PO Q8H PRN (Reason: nausea and vomiting) Qty: 14 0RF famotidine 20 mg tablet 20 mg PO BID 28 Days Qty: 56 0RF pantoprazole [Protonix] 40 mg tablet,delayed release (DR/EC) 40 mg PO DAILY 28 Days Qty: 28 0RF No Action propranolol 10 mg tablet 10 mg PO TID PRN (Reason: anxiety) Qty: 90 2RF Vitamin B-12 1,000 mcg Tablet 1,000 mcg PO DAILY Tylenol Ex Str Rapid Release 500 mg Tablet 1,000 mg PO Q6H PRN (Reason: Pain) methadone 40 mg Tablet,Soluble 40 mg PO DAILY trazodone 50 mg tablet 100 mg PO BEDTIME estradiol 0.5 mg tablet 0.5 mg PO BEDTIME Lamictal 100 mg tablet 200 mg PO BEDTIME Pristiq 100 mg tablet extended release 24 hr 100 mg PO BEDTIME Discharge Orders: Discharge ED (Routine); Ordered 05/16/22 Ordered By: Lesley Castellano Referrals: Jennifer Garcia FNP [Primary Care Provider] - Roque Avila MD [Physician] - Patient Instructions: Abdominal Pain (ED) Coding Level of Care Code ED Research Attorney for Aleksandr Do
[2022-05-16] MEDS: iohexol 350 mg/mL 100 mL Btl IV (12:59)
--- NOTE | 2022-05-16 13:06 | PC.NURSE ---
Entered room to pt standing and adjusting bedding. after pt laid back down, pt began splinting abdomen, grimacing, and groaning. Pt reports has had her abdominal pain for a while but got worse this morning. Reports usually pain goes away if she applies pressure but today that isnt helping. Denies any new N/V/D. Reports a subjective fever yesterday. Denies urinary symptoms. LBM 05/14/22. Last PO intake was water in triage.
[2022-05-16] MEDS: sodium chloride 0.9% 1,000 ML 999 ML IV (13:11)
[2022-05-16] MEDS: ondansetron 2 mg/ML SDV 2 mL 4 MG IVP (13:12)
[2022-05-16] MEDS: morphine 4 mg/mL SDV 1 mL IVP (13:15)
[2022-05-16] MEDS: ketorolac 30 mg/mL INJ IVP (13:56)
[2022-05-16] MEDS: fentaNYL 50 mcg/mL INJ 2mL IVP (14:00)
--- NOTE | 2022-05-18 12:57 | DCPLANNER ---
Addendum entered by Kristin Martin 06/03/22 09:56: Patient had a follow up appointment scheduled for 06.02.[address] Avila at general surgery - patient did attend appointment. Addendum entered by Kristin Martin 05/19/22 13:33: Patient has a follow up appointment scheduled for May at 1:[address] Avila. Clinic will call patient with appointment information. Original Note: gis manager had message to schedule a follow up appointment for patient with general surgery, Dr. Shirley. gis manager sent patients information will be printed and reviewed. Patients information will be printed and reviewed. Clinic will call patient with appointment information.
== END 2022-05-16 15:08 | disposition home or self-care (01) ==
PROVIDERS: Emergency Medicine; Emergency Provider Physician Assistant; PCP Nurse Practitioner Family
DX: R10.11 Right upper quadrant pain (principal); Z79.891 Long term (current) use of opiate analgesic; I10 Essential (primary) hypertension; Z87.891 Personal history of nicotine dependence
CPT/HCPCS: 74177; 80053; 81003; 83690; 84703; 85025; 93005; 96374; 96375; 99285; J1885; J2270; J2405; J3010; J7030; Q9967

== ENCOUNTER → 2022-06-01 11:11 | Outpatient (BNVA) | payer MEDICARE, MEDICAID, SELFPAY | PROVIDERS: PCP Nurse Practitioner Family; Visit Provider Surgery | DX: R10.9 Unspecified abdominal pain (principal); E88.81 Metabolic syndrome and other insulin resistance; Z90.3 Acquired absence of stomach [part of] | CPT/HCPCS: 99213 ==

== ENCOUNTER 2022-06-02 16:33 | Outpatient (CLI) | payer MEDICARE, MEDICAID, SELFPAY ==
[2022-06-02 17:40] LABS: Basophils % 0.4 %; Eosinophils % 0.3 %; Hematocrit 36.5 % (37.0-47.0); Hemoglobin 11.8 g/dL (11.5-15.3); Lymphocytes # 2.3 10^3/uL (0.8-4.8); Mean Corpuscular HGB Conc 32.3 g/dL (30.0-36.0); Mean Corpuscular Hemoglobin 31.3 pg (28.0-34.0); Mean Corpuscular Volume 96.8 fl (81-99); Mean Platelet Volume 9.5 fL (7.4-10.4); Monocytes # 0.6 10^3/uL (0.2-0.9); Monocytes % 8.7 %; Neutrophils % 58.3 %; Nucleated Red Blood Cells % 0 %; Platelet Count 183 10^3/cmm (130-400); Red Blood Count 3.77 10^6/uL (4.1-5.3); Red Cell Distribution Width 12.4 % (12.1-15.1)
[2022-06-02 17:55] LABS: Alanine Aminotransferase 11 U/L (0-33); Albumin Level 4.1 g/dL (3.5-5.2); Alkaline Phosphatase 97 U/L (35-105); Anion Gap 13.9 (5-19); Aspartate Amino Transferase 17 U/L (0-32); Blood Urea Nitrogen 6 mg/dL (6-20); Calcium 8.6 mg/dL (8.5-10.5); Carbon Dioxide 26 mmol/L (22-29); Chloride 103 mmol/L (98-107); Chol HDL Ratio 2.26 mg/dL (0.0-4.40); Cholesterol 138 mg/dL (0-200); Ferritin 84 ng/mL (15-150); Globulin 2.1 g/dL (1.3-4.6); Glomerular Filtration Rate 172.6 mL/min (90-130); Glucose 56 mg/dL (65-115); HDL Cholesterol 61 mg/dL (60-100); Iron 56 ug/dL (37-145); LDL Cholesterol Calculated 67 mg/dL (50-129); Magnesium 2.1 mg/dL (1.7-2.3); Osmolality Calculated 283 mOsm/kg (285-295); Percent Saturation 20.8 % (20-50); Potassium 3.9 mmol/L (3.5-5.1); Sodium 139 mmol/L (136-145); Thyroid Stimulating Hormone 1.75 uIU/mL (0.27-4.20); Total Bilirubin 0.3 mg/dL (0.15-1.2); Total Iron Binding Capacity 268 mcg/dl; Total Protein 6.2 g/dL (6.6-8.7); Triglycerides 49 mg/dL (0-150); Unsaturated Iron Binding 212 ug/dL (112-347); Vitamin B12 919 pg/mL (232-1245)
[2022-06-02 18:01] LABS: Calcium 8.8 mg/dL (8.5-10.5)
[2022-06-02 18:08] LABS: Parathyroid Hormone 73.5 pg/mL (15-65)
[2022-06-02 19:17] LABS: Folate Level 3.4 ng/mL (4.8-37.3)
[2022-06-06 16:18] LABS: Zinc Level, Serum or Plasma 72 mcg/dL (60-130)
[2022-06-08 10:07] LABS: Vit D 1,25 (Oh)2, Total 48 pg/mL (18-72); Vit D2 1,25 (Oh)2 <8 pg/mL; Vit D3 1,25 (Oh)2 48 pg/mL
[2022-06-08 19:58] LABS: Vitamin B1(Thiamin) Plas/Ser 9 nmol/L (8-30)
== END 2022-06-02 16:34 | disposition home or self-care (01) ==
PROVIDERS: PCP Nurse Practitioner Family; Visit Provider Surgery
DX: E88.81 Metabolic syndrome and other insulin resistance (principal)
CPT/HCPCS: 36415; 80053; 80061; 82310; 82607; 82652; 82728; 82746; 83540; 83550; 83735; 83970; 84425; 84443; 84630; 85025

== ENCOUNTER 2022-06-03 08:59 | Day surgery (SDC) | payer MEDICARE, MEDICAID, SELFPAY ==
[2022-06-02 10:07] VITALS: BMI 22.8
[2022-06-03 09:17] VITALS: BP 108/79; PULSE 68; RESP 12; TEMP 36.4; O2SAT 95
--- NOTE | 2022-06-03 09:22 | P.ANESASSM_ITS ---
Pre-Anesthetic Assessment Height/Weight: Height 1.68 m Weight 64.41 kg Preop Diagnosis: Abdominal pain Operation Date: 06/03/22 10:30 Proposed Procedures p EGD and colonoscopy [id number],R10.9(Not Applicable) - Roque Avila MD s Colonoscopy(Not Applicable) - Roque Avila MD Familial anesthetic complications: none Was Beta David taken within 24 hours: Yes Was Clonidine taken within 24 hours: N/A Last intake: 06/02/22 Social Tobacco and No alcohol Exam alert, oriented x 3, clear to auscultation bilaterally and regular rate & rhythm Airway Submandibular: within normal limits Cervical ROM: within normal limits Mallampati: Class I Dentition: full Pulmonary Exertional Dyspnea, Sleep Apnea (Does not use CPAP ) and Shortness of Breath CV/HEM Hypertension None reported Hepatic None reported GI Gastroesophageal Reflux Disease Hx of sleeve gastrectomy Metabolic Hypoestrogenism [facility] None reported Neuropsych Anxiety, Depression and Seizure (Hx of seizure like activity ) Anesthetic Plan ASA status: 3 (47 year old smoker s/p sleeve gastrectomy with hx of htn , anxiety, depression, SHAYNE, and panic disorder with dyspnea on exertion ) Anesthesia: Anesthesia Evaluation and General Other: I discussed with the patient risks, goals, and benefits of MAC and general anesthesia. We discussed spectrum of MAC anesthesia including conversion to general as well as possibility of recall of intraoperative stimuli including discomfort/pain. Patient agrees to proceed with MAC. Risk of > 500 ml blood loss (7ml/kg in children): No Medications/Allergies Home Medications Medication Instructions Recorded Confirmed Last Taken Type cyanocobalamin (vitamin B-12) 1,000 mcg PO DAILY 05/16/22 06/03/22 06/02/22 History 1,000 mcg tablet (Vitamin B-12) estradiol 0.5 mg tablet 0.5 mg PO BEDTIME 05/16/22 06/03/22 06/02/22 History famotidine 20 mg tablet 20 mg PO BID 4 weeks #56 tabs 05/16/22 06/03/22 06/02/22 Rx methadone 40 mg soluble tablet 40 mg PO DAILY 05/16/22 06/03/22 06/03/22 History desvenlafaxine succinate 100 mg 100 mg PO DAILY #30 tabs 05/25/22 06/03/22 06/02/22 Rx tablet,extended release 24 hr (Pristiq) lamotrigine 100 mg tablet 200 mg PO DAILY #60 tabs 05/25/22 06/03/22 06/02/22 Rx (Lamictal) propranolol 10 mg tablet 10 mg PO TID PRN anxiety #90 tabs 05/25/22 06/03/22 06/02/22 Rx trazodone 50 mg tablet 100 mg PO BEDTIME #60 tabs 05/25/22 06/03/22 06/02/22 Rx ondansetron 4 mg disintegrating 4 mg PO Q6H PRN nausea and 06/01/22 06/03/22 06/01/22 Rx tablet vomiting 30 days #120 tabs pantoprazole 40 mg tablet,delayed 40 mg PO DAILY 30 days #30 tabs 06/01/22 06/03/22 06/02/22 Rx release (Protonix) Allergies Allergy/AdvReac Type Severity Reaction Status Date / Time ibuprofen Allergy Severe ADR-Vomitin Verified 06/01/22 16:48 g Penicillins Allergy Severe ALGY-Anaphy Verified 06/01/22 16:48 laxis Sulfa (Sulfonamide Allergy Severe ALGY-Anaphy Verified 06/01/22 16:48 Antibiotics) laxis tramadol Allergy Severe ALGY-Anaphy Verified 06/01/22 16:48 laxis PFSH Anesthesia Medical History Abnormal mammogram Chronic back pain greater than 3 months duration Dental caries Hypertension Hypoestrogenism Left lower quadrant pain Seizure-like activity Surgical History History of esophagogastroduodenoscopy (EGD) History of sleeve gastrectomy Family History Denies family history of Anesthesia complication Bleeding disorder Social History Smoking and tobacco status: former smoker Quit status (tobacco): has quit using tobacco Year quit tobacco: 03/2018 Former quit date comment: 2 PPD for 14 years Second hand smoke exposure: Yes Smoking risk assessment/counseling performed?: No Alcohol intake: current Alcohol intake frequency: holidays/special occasions only Alcohol type: hard liquor Desire information about alcohol rehabilitation?: No Counseling given: No Desire information about substance/drug rehabilitation?: No Counseling given: No Data Anesthesia Cardiac Studies: No Data to Display
[2022-06-03] MEDS: sodium chloride 0.9% 1,000 ML 30 ML IV (09:28)
--- NOTE | 2022-06-03 09:57 | W.PM.OPSUD ---
Surgery/Procedure H&P Update DATE OF PROCEDURE: June 03, 2022 DATE H&P PERFORMED: 06/01/22 H&P UPDATE INFORMATION: I have reviewed H&P completed within last 30 days, I have examined patient prior to procedure and No changes to prior documentation PREOP DIAGNOSIS: Abdominal pain PRIMARY INDICATION FOR PROCEDURE: The same PLANNED PROCEDURE: Operation Date: 06/03/22 10:30 Proposed Procedures p EGD and colonoscopy [id number],R10.9(Not Applicable) - Roque Avila MD s Colonoscopy(Not Applicable) - Roque Avila MD
[2022-06-03 10:50] VITALS: BP 96/61; PULSE 57; RESP 16; TEMP 36.1; O2SAT 98
[2022-06-03 10:55] VITALS: BP 108/69; PULSE 56; RESP 16; O2SAT 96
[2022-06-03 11:05] VITALS: BP 100/68; PULSE 53; RESP 16; O2SAT 99
--- NOTE | 2022-06-03 12:09 | ANE.PACU2 ---
Inpatient post-anesthesia follow up: Airway intact: Yes Vital signs: Temperature 97.0 F Pulse Rate 53 Respiratory Rate 16 Blood Pressure 100/68 Pulse Oximetry 99 Oxygen Delivery Me thod Room Air Oxygen Flow Rate Fraction of Inspir ed Oxygen Hydration adequate: Yes Nausea and vomiting: No Pain level: 1 Mental status: Baseline
== END 2022-06-03 11:38 | disposition home or self-care (01) ==
PROVIDERS: PCP Nurse Practitioner Family; Visit Provider Surgery
PROC: 0DJ08ZZ Inspection of Upper Intestinal Tract, Via Natural or Artificial Opening Endoscopic (ICD-10-PCS; CPT 43235; principal; 2022-06-03 10:30)
PROC: 0DJD8ZZ Inspection of Lower Intestinal Tract, Via Natural or Artificial Opening Endoscopic (ICD-10-PCS; CPT 45378; 2022-06-03 10:30)
DX: K31.9 Disease of stomach and duodenum, unspecified (principal); K21.00 Gastro-esophageal reflux disease with esophagitis, without bleeding; I10 Essential (primary) hypertension; G47.30 Sleep apnea, unspecified; Z87.891 Personal history of nicotine dependence; Z88.0 Allergy status to penicillin; Z88.2 Allergy status to sulfonamides; Z88.5 Allergy status to narcotic agent; Z98.84 Bariatric surgery status; Z90.49 Acquired absence of other specified parts of digestive tract
CPT/HCPCS: 43239; 87070; 87077; 88305; J2704; J3535; J7030

== ENCOUNTER 2022-11-01 06:58 | Emergency (ER) | payer MEDICARE, MEDICAID, SELFPAY ==
[2022-11-01 07:13] VITALS: BP 126/80; PULSE 67; RESP 16; TEMP 36.8; O2SAT 96
--- NOTE | 2022-11-01 07:29 | W.ED.DENTAL ---
HPI - Dental/Oral General: Chief complaint: Dental/Oral Stated complaint: mouth pain/infection Time Seen by Provider: 11/01/22 07:21 History of Present Illness: Patient is a 47-year-old female who comes to the ED with dental pain. Symptoms started 2 days ago. She started having tooth ache on bottom left, tooth #20. This morning she woke up and was having some left mandible swelling. Denies any other complaints. She plans on calling around to find a dentist this week. Teeth map: 1. Tooth #20 is causing her pain Associated symptoms: Denies fever(s) or odynophagia Review of Systems Const: Denies: fever(s), chills or fatigue Eyes: Denies: change in vision or eye discomfort ENMT: Reports: dental pain; Denies: throat pain, odynophagia, nasal discharge or nasal congestion Card: Denies: chest pain, palpitations, edema, swelling of feet/ankles, dyspnea on exertion or orthopnea Resp: Denies: dyspnea, productive cough or non-productive cough GI: Denies: abdominal pain, nausea, vomiting, diarrhea, constipation or hematochezia : Denies: flank pain, dysuria or hematuria Musc: Denies: neck pain, back pain or extremity swelling Skin/Breast: Denies: rash or new lesions Neuro: Denies: headache(s), numbness in extremities or weakness in extremities PFSH ED PFSH: Medical History Abnormal mammogram Chronic back pain greater than 3 months duration Dental caries Hypertension Hypoestrogenism Left lower quadrant pain Seizure-like activity Surgical History History of esophagogastroduodenoscopy (EGD) History of sleeve gastrectomy Family History Denies family history of Anesthesia complication Bleeding disorder Social History Smoking and tobacco status: former smoker Quit status (tobacco): has quit using tobacco Year quit tobacco: 03/2018 Former quit date comment: 2 PPD for 14 years Second hand smoke exposure: Yes Smoking risk assessment/counseling performed?: No Alcohol intake: current Alcohol intake frequency: holidays/special occasions only Alcohol type: hard liquor Desire information about alcohol rehabilitation?: No Counseling given: Yes Other alcohol counseling details: Alcohol & meds don't mix. Desire information about substance/drug rehabilitation?: No Counseling given: No Physical Exam Const: COMMON NORMALS: no acute distress, patient oriented x3 and alert GENERAL APPEARANCE: cooperative and comfortable HENMT: COMMON NORMALS: normocephalic HEAD & SCALP: normocephalic MOUTH: Normal oral and palatal mucosa present TEETH & GINGIVA: Yes abnormal tooth and associated gingiva lower left second bicuspid tender and with associated gingival edema THROAT: posterior oropharynx normal and uvula midline Neck/C-Spine: COMMON NORMALS: supple GENERAL: Yes normal visual inspection Resp: COMMON NORMALS: normal respiratory effort, No retractions, No use of accessory muscles and clear to auscultation bilaterally AUSCULTATION: clear to auscultation bilaterally Cardio: COMMON NORMALS: regular rate, regular rhythm, S1 normal heart sound present, S2 normal heart sound present, No gallops present (Cardio), No clicks present (Cardio), No murmurs present (Cardio) and Peripheral pulses 2+ throughout RATE: regular rate RHYTHM: regular rhythm HEART SOUNDS: S1 normal heart sound present and S2 normal heart sound present PERIPHERAL PULSES: Peripheral pulses 2+ throughout GI: COMMON NORMALS: Normal to inspection, nondistended, normoactive bowel sounds present, Soft to palpation, non-tender and no masses PALPATION: Yes Soft to palpation : COMMON NORMALS: Yes no CVA tenderness BLADDER/KIDNEY EXAM: Yes no CVA tenderness Back/Pelvis: COMMON NORMALS: no CVA tenderness Extremity: COMMON NORMALS: normal to inspection Neuro: COMMON NORMALS: patient oriented x3 SENSORIUM/ORIENTATION: Yes alert GAIT: Yes Normal gait present Skin: GENERAL SKIN EXAM: dry skin Course Vital Signs: Vital signs: Vital Signs Temperature 98.2 F 11/01/22 07:13 Pulse Rate 67 11/01/22 07:13 Respiratory Rate 16 11/01/22 07:13 Blood Pressure 126/80 11/01/22 07:13 Pulse Oximetry 96 11/01/22 07:13 [facility] - Dental/Oral Medical Decision Making Patient is a 47-year-old female who comes to the ED with dental pain. She appears nontoxic in no acute distress. She does have some tenderness in left lower second bicuspid along with associated gingival edema. Vitals are stable. Patient was diagnosed with dental pain and discharged home with a prescription for clindamycin. With dentist as soon as possible to have dental pain further evaluated and treated. Return to ED precautions given. Patient understood and agreed with plan. Discharge Plan Discharge Patient Disposition: Home Clinical Impression: Pain, dental Condition: Stable Prescriptions: New Cleocin HCl 150 mg capsule 300 mg PO QID 7 Days Qty: 56 0RF acetaminophen 500 mg tablet 1,000 mg PO TID PRN (Reason: pain) Qty: 30 0RF No Action trazodone 50 mg tablet 100 mg PO BEDTIME Qty: 60 2RF propranolol 10 mg tablet 10 mg PO TID PRN (Reason: anxiety) Qty: 90 2RF ondansetron 4 mg tablet,disintegrating 4 mg PO Q6H PRN (Reason: nausea and vomiting) 30 Days Qty: 120 1RF pantoprazole [Protonix] 40 mg tablet,delayed release (DR/EC) 40 mg PO DAILY 30 Days Qty: 30 3RF desvenlafaxine succinate [Pristiq] 100 mg tablet extended release 24 hr 100 mg PO DAILY Qty: 30 2RF Lamictal 100 mg tablet 200 mg PO DAILY Qty: 60 2RF nystatin 100,000 unit/mL suspension 100,000 unit PO QID 10 Days Qty: 40 0RF Rx Instructions: administer 1/2 of dose in each side of the mouth cyanocobalamin (vitamin B-12) [Vitamin B-12] 1,000 mcg Tablet 1,000 mcg PO DAILY estradiol 0.5 mg tablet 0.5 mg PO BEDTIME methadone 40 mg tablet,soluble 60 mg PO DAILY Discharge Orders: Discharge ED (Routine); Ordered 11/01/22 Ordered By: Alphonse Rodriguez Referrals: Jennifer Garcia FNP [Primary Care Provider] - Discharge Diet: Regular Discharge Activity: Resume usual activity Patient Instructions: Toothache (ED) Activity Restrictions/Additional Instructions: Follow-up with dentist as soon as possible to have dental pain further evaluated and treated. Take medications as prescribed. Return to the ER or your medical provider if condition worsens. Please read and understand discharge instructions. Thank you for choosing [facility] for your healthcare needs today. Please realize this is an emergency room and that we are providing you with a medical screening exam and this may not be complete and all inclusive of all the testing and or work up that you may need to determine your ailment or severity of your illness. It is very important that you follow up as instructed or that you return to the Emergency Department should you have concerns or if your condition changes or worsens in any way. Coding Level of Care Code ED [employer] Specialist for Aleksandr Fwd Exam Comprehensive
[2022-11-01] MEDS: HYDROcodone-acetaminophen 5-325 mg Tablet 1 TAB PO (08:09)
[2022-11-01] MEDS: clindamycin 150 mg Capsule 300 MG PO (08:10)
== END 2022-11-01 08:11 | disposition home or self-care (01) ==
PROVIDERS: Emergency Provider Physician Assistant; PCP Nurse Practitioner Family
DX: K08.89 Other specified disorders of teeth and supporting structures (principal); I10 Essential (primary) hypertension; Z87.891 Personal history of nicotine dependence
CPT/HCPCS: 99283

== ENCOUNTER → 2022-12-29 10:14 | Outpatient (BNVA) | payer MEDICARE, MEDICAID, SELFPAY | PROVIDERS: PCP Nurse Practitioner Family; Visit Provider Internal Medicine Cardiovascular Disease | DX: R55 Syncope and collapse (principal) | CPT/HCPCS: 93225 ==

== ENCOUNTER → 2023-01-30 13:38 | Outpatient (BNVA) | payer MEDICARE, MEDICAID, SELFPAY | PROVIDERS: PCP Nurse Practitioner Family; Visit Provider Otolaryngology | DX: R13.10 Dysphagia, unspecified (principal); K21.9 Gastro-esophageal reflux disease without esophagitis; F41.1 Generalized anxiety disorder; F41.0 Panic disorder [episodic paroxysmal anxiety] | CPT/HCPCS: 31575; 99204 ==

== ENCOUNTER 2024-04-24 12:41 | Outpatient (CLI) | payer MEDICARE, MEDICAID, SELFPAY ==
--- NOTE | 2024-04-24 | ECG_ITS ---
[facility] Test Date: 2024-04-24 Pat Name: Marquita Rose Department: Room: Gender: Female Wound/Ostomy Nurse: Marleen Nicolas : 1975 Requested By: Jennifer Garcia Order Number: [id number] Ladi MD: Peter Brown M.D. Interpretive Statements NAME OF STUDY: TREADMILL STRESS TEST INDICATION: Chest Pain, PROCEDURE: At the baseline, the patient's blood pressure was 90/53 with a heart rate of 68. The baseline electrocardiogram showed normal sinus rhythm with some nonspecific T wave changes. The patient exercised for 7 minutes and 5 seconds on a standard Lane protocol. Patient attained a maximum heart rate of 152 beats per minute(87% of the maximum predicted heart rate) with a blood pressure at the peak exercise of 116/47 mm Hg. The EKG at the peak exercise revealed diffuse nonspecific ST-T changes in inferolateral leads. Patient did not have any chest pain or any significant cardiac arrhythmias with the exercise During the recovery phase, there were no new changes. Blood pressure at the end of the recovery phase was 117/76 mm Hg with a heart rate of 80 per minute. CONCLUSION: 1. Nonspecific EKG response to treadmill exercise 2. No exercise-induced chest pain or cardiac arrhythmia 3. Fair exercise tolerance, attained a maximum of 10.2 METs Electronically Signed On 04-25-2024 23:16:02 CDT by Peter Brown M.D. [email or web address]
[2024-04-24 12:49] VITALS: BMI 27.6
[2024-04-24 13:27] VITALS: BP 117/76; PULSE 80
== END 2024-04-24 12:42 | disposition home or self-care (01) ==
PROVIDERS: PCP Nurse Practitioner Family; Visit Provider Nurse Practitioner Family
DX: R07.9 Chest pain, unspecified (principal)
CPT/HCPCS: 93017

== ENCOUNTER 2024-11-08 11:35 | Outpatient (CLI) | payer MEDICARE, MEDICAID, SELFPAY ==
--- NOTE | 2024-11-08 11:42 | MM_ITS ---
WS: [id number] VIEWS: MLO and CC views both breasts. 3D digital tomosynthesis is also included in this exam. Comparison made with prior exam of 05/16/2019, 12/19/2019,. Findings: The breasts are heterogeneously dense, which may obscure small masses. Questionable new 8 mm spiculated nodule in the central LEFT breast almost directly behind the nipple at mid depth. This is best seen on the 3D digital tomosynthesis. There were no new findings in the RI GHT breast. Scattered benign-appearing calcifications noted bilaterally. Compression spot images with tomography and regional ultrasound of the LEFT breast is suggested for follow-up. MM/MM scr BI tomosynthesis [id number] Impression: BI-RADS: 0 - Incomplete: Need additional imaging evaluation FOLLOW-UP: See Report This mammogram was also analyzed by the Computer Aided Detection System R2 Imag e Director Organizational.
== END 2024-11-08 11:36 | disposition home or self-care (01) ==
PROVIDERS: PCP Nurse Practitioner Family; Visit Provider Nurse Practitioner Family
DX: Z12.31 Encounter for screening mammogram for malignant neoplasm of breast (principal); R92.333 Mammographic heterogeneous density, bilateral breasts; N63.20 Unspecified lump in the left breast, unspecified quadrant; R92.1 Mammographic calcification found on diagnostic imaging of breast
CPT/HCPCS: 77063; 77067

== ENCOUNTER 2024-11-29 13:44 | Outpatient (CLI) | payer OTHER, MEDICAID, SELFPAY ==
--- NOTE | 2024-11-29 13:48 | MM_ITS ---
WS: [id number] VIEWS: MLO, CC, and ML views LEFT breast only. 3D digital tomosynthesis is also included in this exam. Comparison made with prior exam of 11/08/2024. Findings: The breasts are heterogeneously dense, which may obscure small masses. On the compression spot CC tomographic views a subcentimeter nodule with architectural distortion is seen in the mid breast on the nipple line. This is not definitely identified on the MLO or the 90 degree lateral views. Regional ultrasound of this area would be indicated for further work-up. MM/MM diag LT tomosynthesis [id number] IMPRESSION: 1. Subcentimeter nodule with architectural distortion seen in the central LEFT breast on the cc tomographic compression spot views only. Continued work-up wit h ultrasound recommended. Impression: BI-RADS: 0 - Incomplete: Need additional imaging evaluation FOLLOW-UP: Need Additional Imaging This mammogram was also analyzed by the Computer Aided Detection System R2 Imag e Shear Operator Automatic.
--- NOTE | 2024-11-29 13:48 | US_ITS ---
WS: [id number] Exam: US breast LT limited* [id number] Date/Time of Exam: 11/29/2024 2:48 PM Reason For Exam: ABNORMAL MAMMO The central aspect of the LEFT breast was targeted for ultrasound evaluation. Directly behind the nipple in the mid breast a persistent irregular subcentimeter hypoechoic nodule is identified. This is an indeterminate nodule. There were no other solid nodules or masses in this region. There were no cysts identified. US/US breast LT limited* [id number] IMPRESSION: 1. Subcentimeter indeterminant solid hypoechoic nodule with acoustic shadowing in the central LEFT breast on the nipple line. This corresponds to recent mammo graphic findings. Biopsy would be recommended for follow-up. Ultrasound guided biopsy could be performed.
== END 2024-11-29 13:45 | disposition home or self-care (01) ==
LOC: RAD 13:47
PROVIDERS: PCP Nurse Practitioner Family; Visit Provider Nurse Practitioner Family
DX: R92.8 Other abnormal and inconclusive findings on diagnostic imaging of breast (principal); R92.332 Mammographic heterogeneous density, left breast; N63.20 Unspecified lump in the left breast, unspecified quadrant
CPT/HCPCS: 76642; 77061; G0279

== ENCOUNTER 2024-12-18 10:59 | Outpatient (CLI) | payer OTHER, MEDICAID, SELFPAY ==
--- NOTE | 2024-12-18 11:05 | US_ITS ---
WS: [id number] ULTRASOUND-GUIDED LEFT BREAST BIOPSY HISTORY: ABNORMAL MAMMOGRAM COMPARISON: 11/29/2024, 11/08/2024 Procedure, risks and complications are explained to the patient. Medications are reviewed. Consent is obtained. The mass in the LEFT breast is localized with ultrasound. Mass localizes to 12:00, 1 cm from the nipple. Skin is cleansed with ChloraPrep and anesthetized with 1% buffered lidocaine. Small dermatome is made. Under sterile conditions mass is biopsied with a 14-gauge Achieve needle. Multiple core biopsies are performed. Material placed in formalin and sent to pathology for review. No complications encountered. Breast tissue marker ([employer] ultrasound enhanced ribbon): Single. Patient left the radiology suite with no complications. Patient is instructed to return to [facility] or call with any concerns. US/[place] [id number] IMPRESSION: 1. Uncomplicated core needle biopsy LEFT breast mass at 12:00. PATHOLOGY: Invasive mammary carcinoma with ductal and lobular features. Tumor s ize 0.4 cm. RECOMMENDATION: Follow-up with oncology and breast surgeon. Ultrasound and mammogram imaging concordant with pathology.
[2024-12-25 14:24] LABS: Breast Profile ER,PR,HER2,Ki-6 See Report
== END 2024-12-18 11:00 | disposition home or self-care (01) ==
LOC: RAD 11:01
PROVIDERS: PCP Nurse Practitioner Family; Visit Provider Nurse Practitioner Family
DX: R92.8 Other abnormal and inconclusive findings on diagnostic imaging of breast (principal); C50.812 Malignant neoplasm of overlapping sites of left female breast
CPT/HCPCS: 19083; 88305; 88361; 88374; J9999

== ENCOUNTER 2024-12-31 15:25 | Oncology outpatient (recurring) (ONCR) | payer OTHER, MEDICAID, SELFPAY | END 2025-01-06 23:59 | disposition home or self-care (01) | LOC: ONCMED 15:27 | PROVIDERS: PCP Nurse Practitioner Family; Visit Provider Internal Medicine Medical Oncology | DX: Z53.9 Procedure and treatment not carried out, unspecified reason (principal) ==

== ENCOUNTER 2025-04-07 15:02 | Oncology outpatient (recurring) (ONCR) | payer OTHER, MEDICAID, SELFPAY ==
--- NOTE | 2025-03-25 13:18 | N.ONRAD NP_ITS ---
Radiation Oncology New Patient Visit Patient: Marquita Rose MR#: [id number] : 1975 Age: 50 Sex: Female Dictated by: Dr. Jacky Mendoza Date of Service: 03/24/2025 Referring Physician(s) : Diagnosis: St IA (T1A, N0, M0 gr 1 to 2 IDC of left breast s/p bx 12/18/2024 followed bynegative lumpectomy and ax LN sampling 02/17/2025. Radiotherapy to date: Summary > No prior radiation therapy. Chief Complaint / History of Present Illness: She has had 5 years of left breast pain with no palpable mass ever noted. She underwent bx approximately two year ago which was benign. Mammogram 11/08/2024 revealed lesion in left breast Biopsy 12/18/2024 0.4cm gr 1 to 2 IDC ER 95%, DC 90%, HER2 negative by FISH, Ki 67 8% MRI breasts 02/05/2025 0.7 cm central left breast lesion. Lumpectomy and a LN sampling 02/17/2025 revealed no residual disease. Oncotype Dx low at 10 revealing 3 % benefit to endocrine and < 1% benefit for chemo. Genetics testing negative. Now breast pain has fully resolved following surgery. No other symptoms. Feels well. Current Medications: buspirone mg PO cholecalciferol (vitamin D3) PO lamotrigine mg PO methadone 60 mg PO DAILY pantoprazole mg PO quetiapine mg PO spironolactone mg PO Allergies: ibuprofen Allergy (Severe, Verified 12/31/24 15:34) ADR-Vomiting Penicillins Allergy (Severe, Verified 12/31/24 15:34) ALGY-Anaphylaxis Sulfa (Sulfonamide Antibiotics) Allergy (Severe, Verified 12/31/24 15:34) ALGY-Anaphylaxis tramadol Allergy (Severe, Verified 12/31/24 15:34) ALGY-Anaphylaxis Medical History: No history of collagen vascular disease. No previous radiation therapy. Hypertension Hypertension Seizure Dental caries Left lower quadrant pain Hypoestrogenism Chronic back pain greater than 3 months duration Hypertension Seizure-like activity Abnormal mammogram Surgical History: History of back surgery History of total hysterectomy History of tubal ligation History of cholecystectomy History of bladder surgery History of sleeve gastrectomy History of esophagogastroduodenoscopy (EGD) Family History: Mother with history of breast cancer now doing well, Father of pancreatic carcinoma. Denies family history of Anesthesia complication Bleeding disorder Social History: Smoking and tobacco/nicotine status: current some day tobacco/nicotine user Quit status (tobacco/nicotine): has quit using Year quit tobacco: 03/2018 Former quit date comment: 2 PPD for 14 years Second hand smoke exposure: Yes Alcohol intake: current Alcohol intake frequency: holidays/special occasions only Alcohol type: hard liquor Substance/Drug Use: former Date of last use: 2006 Vital Signs: Performed on 03/24/2025 11:10 AM BMI - 27.665 kg/m2 (high), Height - 66 in, Weight - 171.4 lbs, Temperature - 97.8 f, Pulse - 71 /min, Respiration - 17 /min, O2 Sat - 95 % (low), Pain - 0, Fatigue - 0 and BP - 112/ 71 mm(hg). Physical Exam: No palpable cervical or supraclav adenopathy. Left breast with radha- aeroloar incision healed axillary incision healed. Arms with FROM Performance Status: ECOG PS 0 Pathology: See above Lab: none Imaging: See HPI Impression:St IA IDC of central left breast. No residual disease seen at lumpectomy. Recommend 46 Gy in 16 fractions to whole left breast with DIBH ( deep inspiration breath hold) technique. As Lumpectomy had no residual, will omit boost. She will see med onc following treatment to discuss endocrine treatment. Signed by: 03/24/2025 2:52:27 PM <<Signature on File>> Time spent with patient: CPT Code: CPT Code:
== END 2025-04-07 23:59 | disposition home or self-care (01) ==
PROVIDERS: PCP Nurse Practitioner Family; Visit Provider Radiology Radiation Oncology
DX: Z51.0 Encounter for antineoplastic radiation therapy (principal); C50.112 Malignant neoplasm of central portion of left female breast; Z17.0 Estrogen receptor positive status [ER+]
CPT/HCPCS: 77290; 77295; 77300; 77334; 77387; 77412

== ENCOUNTER 2025-04-24 14:57 | Oncology outpatient (recurring) (ONCR) | payer OTHER, MEDICAID, SELFPAY ==
--- NOTE | 2025-04-08 16:20 | ONCRAD TMN_ITS ---
Radiation Oncology Weekly Treatment Management Patient: Rose Ferreira MR#: [id number] : 1975> Attending Physician: Mic Simmons Date of Service: 04/08/2025 Referring Physician(s) : Diagnosis: C50.912 - Malignant neoplasm of unspecified site of left female breast, Diagnosed 03/24/2025 (Active) Radiotherapy to date: Course: Lt Breast 2024, Treatment Site: Left breast, Ref. ID: [id number], Energy: 6X, Dose/Fx (cGy): 266, #Fx: 16, Dose Correction (cGy): 0, Total Dose Delivered (cGy): 1,330, Start Date: 04/02/2025, Elapsed Days: 6 Reason for visit: The patient is being seen today as part of their regularly scheduled weekly on treatment visits to assess for acute toxicities from radiotherapy. Review of Systems: Patient describes fatigue and lower blood pressure. She is on chronic narcotics. She will start using creams Vital Signs: Performed on 04/08/2025 3:12 PM BMI - 26.955 kg/m2 (high), Height - 66 in, Weight - 167 lbs, Temperature - 98.7 f, Pulse - 61 /min, Respiration - 18 /min, O2 Sat - 99 %, Pain - 0, Fatigue - 4 and BP - 95/ 63 mm(hg)(/low). Physical Exam: AAOx3. Skin intact. No erythema. Imaging: Radiation therapy imaging related to accurate target localization (i.e. KV, MV and CBCT) was reviewed. Appropriate changes, if any, were made to ensure treatment accuracy. Plan: Continue XRT Start using creams. Signed by: Mic Simmons 04/08/2025 4:18:17 PM
--- NOTE | 2025-04-15 16:08 | ONCRAD TMN_ITS ---
Radiation Oncology Weekly Treatment Management Patient: Marquita Rose MR#: [id number] : 1975 Attending Physician: Dr. Jacky Mendoza Date of Service: 04/15/2025 Referring Physician(s) : Diagnosis: C50.912 - Malignant neoplasm of unspecified site of left female breast, Diagnosed 03/24/2025 (Active) Radiotherapy to date: Course: Lt Breast 2024, Treatment Site: Left breast, Ref. ID: [id number], Energy: 6X, Dose/Fx (cGy): 266, #Fx: , Dose Correction (cGy): 0, Total Dose Delivered (cGy): 2,394, Start Date: 04/02/2025, Elapsed Days: 13 Reason for visit: The patient is being seen today as part of their regularly scheduled weekly on treatment visits to assess for acute toxicities from radiotherapy. Review of Systems: No breast pain or itch. On Lisinopril and BP her is 88/61 sitting and 88/62 standing. Uses moisturizer of some type. Active at home. No dizziness. Vital Signs: Performed on 04/15/2025 3:43 PM BMI - 27.568 kg/m2 (high), Height - 66 in, Weight - 170.8 lbs, Temperature - 97.2 f, Pulse - 55 /min (low), Respiration - 17 /min, O2 Sat - 98 %, Pain - 0, Fatigue - 0 and BP - 88/ 61 mm(hg)(low). Physical Exam: omitted. Imaging: Radiation therapy imaging related to accurate target localization (i.e. KV, MV and CBCT) was reviewed. Appropriate changes, if any, were made to ensure treatment accuracy. Plan: Good tolerance of treatment. Need to check BP at home. She will get a BP cuff. Recommend good hydration caffeine and salt to assist in supporting BP if it remains low and until meds are reviewed by PMD. Signed by: Dr. Jacky Mendoza 04/15/2025 4:06:44 PM
--- NOTE | 2025-04-22 16:11 | ONCRAD TMN_ITS ---
Radiation Oncology Weekly Treatment Management Patient: Marquita Rose MR#: [id number] : 1975 Attending Physician: Dr. Jacky Mendoza Date of Service: 04/22/2025 Referring Physician(s) : Diagnosis: C50.912 - Malignant neoplasm of unspecified site of left female breast, Diagnosed 03/24/2025 (Active) Radiotherapy to date: Course: Lt Breast 2024, Treatment Site: Left breast, Ref. ID: [id number], Energy: 6X, Dose/Fx (cGy): 266, #Fx: / 16, Dose Correction (cGy): 0, Total Dose Delivered (cGy): 3,724, Start Date: 04/02/2025, Elapsed Days: 20 Reason for visit: The patient is being seen today as part of their regularly scheduled weekly on treatment visits to assess for acute toxicities from radiotherapy. Review of Systems: Has low blood pressure. On HTN meds BP here 87/42. No dizziness. Also has intermittent left central breast pain. Currently pain is absent. Vital Signs: Performed on 04/22/2025 3:28 PM BMI - 27.633 kg/m2 (high), Height - 66 in, Weight - 171.2 lbs, Temperature - 96.9 f, Pulse - 68 /min, Respiration - 16 /min, O2 Sat - 96 %, Pain - 0, Fatigue - 0 and BP - 87/ 42 mm(hg)(low). Physical Exam: Minimal left breast erythema. No palpable central left breast tenderness. Imaging: Radiation therapy imaging related to accurate target localization (i.e. KV, MV and CBCT) was reviewed. Appropriate changes, if any, were made to ensure treatment accuracy. Plan: Good tolerance of treatment. She will ask PMD to review and adjust HN med. Complete treatment here on04/24/2025. Signed by: Dr. Jacky Mendoza 04/22/2025 4:10:09 PM
--- NOTE | 2025-04-25 10:17 | N.ONRD TS_ITS ---
Radiation Oncology Treatment Summary Patient: Marquita Rose MR#: [id number] : 1975 Age: 50 Sex: Female Dictated by: Dr. Jacky Mendoza Date of Service: 04/24/2025 Referring Physician(s) : Diagnosis: C50.912 - Malignant neoplasm of unspecified site of left female breast, Diagnosed 03/24/2025 (Active) Radiotherapy to Date: Course: Lt Breast 2024, Treatment Site: Left breast, Ref. ID: [id number], Energy: 6X, Dose/Fx (cGy): 266, #Fx: , Dose Correction (cGy): 0, Total Dose Delivered (cGy): 4,256, Start Date: 04/02/2025, End Date: 04/24/2025, Elapsed Days: 22 Clinical Summary: The patient tolerated RT well. Plan: End of treatment today. Continue on the above medication until the skin reaction resolves. Follow up in one month. Signed by: Dr. Jacky Mendoza>04/25/2025 10:15:43 AM <<Signature on File>>
== END 2025-05-08 23:59 | disposition home or self-care (01) ==
PROVIDERS: PCP Nurse Practitioner Family; Visit Provider Radiology Radiation Oncology
DX: Z51.0 Encounter for antineoplastic radiation therapy (principal); C50.912 Malignant neoplasm of unspecified site of left female breast
CPT/HCPCS: 77336; 77387; 77412; 99024

== ENCOUNTER 2025-07-08 12:15 | Oncology outpatient (recurring) (ONCR) | payer OTHER, MEDICAID, SELFPAY ==
--- NOTE | 2025-06-10 10:47 | ONCRAD EPV_ITS ---
Radiation Oncology Established Patient Visit Patient: Rose Juárez [id number] : 1975> Age: 50> Sex: Female> Dictated by: Mic Simmons Date of Service: 06/10/2025 Referring Physician(s) : DR GILLESPIE Diagnosis: C50.912 - Malignant neoplasm of unspecified site of left female breast, Diagnosed 03/24/2025 (Active) Radiotherapy to Date: Course: Lt Breast 2024, Treatment Site: Left breast, Ref. ID: [id number], Energy: 6X, Dose/Fx (cGy): 266, #Fx: , Dose Correction (cGy): 0, Total Dose Delivered (cGy): 4,256, Start Date: 04/02/2025, End Date: 04/24/2025, Elapsed Days: 22 Current History: This is a pleasant 50-year-old female who is now 1 month s/p adjuvant XRT to the left breast. She is completely healed and skin is excellent with noes signs of fibrosis. Patient to see medical oncology today for endocrine therapy. Patient have mammogram in August. Current Medications: Allergies: Current Complaints / Review of Systems: . As above Vital Signs: Performed on 06/10/2025 10:09 AM BMI - 27.084 kg/m2 (high), Height - 66 in, Weight - 167.8 lbs, Temperature - 97.6 f, Pulse - 73 /min, Respiration - 18 /min, O2 Sat - 97 %, Pain - 0, Fatigue - 0 and BP - 102/ 56 mm(hg)(/low). Physical Exam: General: Alert and oriented x 3. No acute distress. HEENT: Normocephalic, atraumatic. Extraocular Movements Intact: Pupils Equal, Round, Reactive to Light and Accommodation: Sclerae anicteric. Oral cavity is clear without lesions, masses or ulcers. NECK: Supple without supraclavicular or jugular lymphadenopathy. LUNGS: Clear to auscultation bilaterally without rales, rhonchi or wheeze. HEART: Regular rate and rhythm, normal S1 and S2 without murmur, gallop or rub. MUSCULOSKELETAL: No tenderness or percussion pain over the axial skeleton, scapulae or pelvis. BREAST: Left breast with no apparent masses. Skin is well-healed. Axilla shows some hyperpigmentation. Right breast no masses. ABDOMEN: Soft, nontender, nondistended without masses or organomegaly. Bowell sounds are present. EXTREMITIES: No peripheral edema is identified. Limited motor and sensory examination are grossly intact and symmetric bilaterally. NEUROLOGIC: Cranial nerves II ???XII are grossly intact. Normal sensation, strength 5/5 in all extremities, normal gait, no ataxia. Performance Status: KPS 90 Lab: None pending. Pathology: Primary, c50.912 - malignant neoplasm of unspecified site of left female breast, Diagnosed 03/24/2025 (active) . Imaging: See HPI Impression: Left breast IDC-GIOVANNY PLAN see medical oncology today for endocrine therapy Mammogram in August [facility] in 3 months or sooner if need be. Signed by: 06/10/2025 10:45:39 AM <<Signature on File>> Time spent with patient: 20 MINUTES- GLOBAL FEE CPT Code: CPT Code:
[2025-07-08 12:23] LABS: Hematocrit 37.7 % (36-47); Hemoglobin 12.30 g/dL (11.27-16.99); Mean Corpuscular HGB Conc 32.6 g/dL (30-55); Mean Corpuscular Hemoglobin 30.2 pg (27-33); Mean Corpuscular Volume 92.6 fl (85-98); Nucleated Red Blood Cells % 0 %; Platelet Count 193 10^3/cmm (157-399); Red Blood Count 4.07 10^6/uL (3.85-5.65); White Blood Count 5.15 10^3/uL (3.29-11.43)
[2025-07-08 13:08] LABS: Alanine Aminotransferase 13 U/L (0-33); Albumin Level 4.4 g/dL (3.5-5.2); Alkaline Phosphatase 104 U/L (35-105); Anion Gap 12.9 (5-19); Aspartate Amino Transferase 23 U/L (0-32); Blood Urea Nitrogen 6 mg/dL (6-20); Calcium 8.8 mg/dL (8.5-10.5); Carbon Dioxide 28 mmol/L (22-29); Chloride 103 mmol/L (98-107); Creatinine Clr Calc Pharmacy 102.8696; Ferritin 28 ng/mL (15-150); Globulin 2.8 g/dL (1.3-4.6); Glucose 89 mg/dL (65-115); Iron 70 ug/dL (37-145); Osmolality Calculated 289 mOsm/kg (285-295); Sodium 141 mmol/L (136-145); Total Iron Binding Capacity 302 mcg/dl; Total Protein 7.2 g/dL (6.6-8.7); Unsaturated Iron Binding 232 ug/dL (112-347); Uric Acid 3.9 mg/dL (2.4-5.7); Vitamin B12 320 pg/mL (232-1245)
[2025-07-08 13:12] LABS: Potassium 2.9 mmol/L (3.5-5.1)
== END 2025-07-08 23:59 | disposition home or self-care (01) ==
PROVIDERS: PCP Nurse Practitioner Family; Visit Provider Internal Medicine Medical Oncology
DX: Z53.9 Procedure and treatment not carried out, unspecified reason; C50.912 Malignant neoplasm of unspecified site of left female breast; Z17.0 Estrogen receptor positive status [ER+]; E28.39 Other primary ovarian failure; Z92.3 Personal history of irradiation; Z87.891 Personal history of nicotine dependence
CPT/HCPCS: 36415; 80053; 82607; 82728; 82746; 83540; 83550; 84550; 85025; 99024; 99202; 99214

== ENCOUNTER 2025-07-22 09:00 | Oncology outpatient (recurring) (ONCR) | payer OTHER, MEDICAID, SELFPAY ==
[2025-07-09] MEDS: sodium chlor 0.9% + KCl 40 mEq 40 MEQ/1,000 ML BAG 250 MEQ IV (10:12)
[2025-07-09] MEDS: ondansetron 2 mg/ML SDV 2 mL 8 MG IVP (14:35)
[2025-07-09 14:48] VITALS: BP 124/78; PULSE 74; RESP 17; TEMP 36.6; O2SAT 98
[2025-07-22 10:32] LABS: Alanine Aminotransferase 13 U/L (0-33); Albumin Level 4.6 g/dL (3.5-5.2); Alkaline Phosphatase 112 U/L (35-105); Blood Urea Nitrogen 10 mg/dL (6-20); Calcium 9.2 mg/dL (8.5-10.5); Carbon Dioxide 23 mmol/L (22-29); Chloride 101 mmol/L (98-107); Globulin 2.6 g/dL (1.3-4.6); Glucose 89 mg/dL (65-115); Osmolality Calculated 285 mOsm/kg (285-295); Sodium 138 mmol/L (136-145); Total Protein 7.2 g/dL (6.6-8.7)
[2025-07-22 10:34] LABS: Anion Gap 18.2 (5-19); Aspartate Amino Transferase 23 U/L (0-32); Potassium 4.2 mmol/L (3.5-5.1)
== END 2025-08-08 23:59 | disposition home or self-care (01) ==
PROVIDERS: PCP Nurse Practitioner Family; Visit Provider Internal Medicine Medical Oncology
DX: C50.912 Malignant neoplasm of unspecified site of left female breast; Z53.9 Procedure and treatment not carried out, unspecified reason
CPT/HCPCS: 80053; 96365; 96366; 96375; J2405; J9999

== ENCOUNTER 2025-09-02 12:53 | Oncology outpatient (recurring) (ONCR) | payer MEDICARE, MEDICAID, SELFPAY ==
[2025-09-02 13:20] LABS: Hematocrit 37.0 % (36-47); Hemoglobin 12.30 g/dL (11.27-16.99); Mean Corpuscular HGB Conc 33.2 g/dL (30-55); Mean Corpuscular Hemoglobin 30.9 pg (27-33); Mean Corpuscular Volume 93.0 fl (85-98); Nucleated Red Blood Cells % 0 %; Platelet Count 181 10^3/cmm (157-399); Red Blood Count 3.98 10^6/uL (3.85-5.65); White Blood Count 6.65 10^3/uL (3.29-11.43)
[2025-09-02 13:41] LABS: Alanine Aminotransferase 11 U/L (0-33); Albumin Level 4.4 g/dL (3.5-5.2); Alkaline Phosphatase 104 U/L (35-105); Anion Gap 12.3 (5-19); Aspartate Amino Transferase 18 U/L (0-32); Blood Urea Nitrogen 9 mg/dL (6-20); Calcium 8.9 mg/dL (8.5-10.5); Carbon Dioxide 28 mmol/L (22-29); Chloride 104 mmol/L (98-107); Globulin 2.3 g/dL (1.3-4.6); Glucose 146 mg/dL (65-115); Osmolality Calculated 291 mOsm/kg (285-295); Potassium 4.3 mmol/L (3.5-5.1); Sodium 140 mmol/L (136-145); Total Protein 6.7 g/dL (6.6-8.7)
== END 2025-09-07 23:59 | disposition home or self-care (01) ==
PROVIDERS: PCP Nurse Practitioner Family; Visit Provider Internal Medicine Medical Oncology
DX: C50.912 Malignant neoplasm of unspecified site of left female breast (principal); Z87.891 Personal history of nicotine dependence; Z79.811 Long term (current) use of aromatase inhibitors; Z92.3 Personal history of irradiation
CPT/HCPCS: 36415; 80053; 85025; 99213